=== PATIENT | female | born 1940 | race Caucasian/White ===

== ENCOUNTER 2021-11-07 17:21 | Emergency (ER) | payer MEDICARE ==
--- NOTE | 2021-11-07 18:46 | RAD REPORT ---
EXAM DESCRIPTION: CT - Head Brain Wo Cont - 11/07/2021 6:38 pm CLINICAL HISTORY: FALL HEAD INJURY COMPARISON: <Comparisons> TECHNIQUE: All CT scans are performed using dose optimization technique as appropriate and may inclu de automated exposure control or mA/KV adjustment according to patient size. FINDINGS: No intracranial hemorrhage, hydrocephalus or extra-axial fluid collection.No areas of brai n edema or evidence of midline shift. Cerebral atrophy which is age advanced. The paranasal sinuses and mastoids are clear. Scalp swelling at the occiput. IMPRESSION: No acute intracranial abnormality. No skull fracture.
--- NOTE | 2021-11-07 18:54 | RAD REPORT ---
EXAM DESCRIPTION: CT - C Spine Wo Con - 11/07/2021 6:38 pm CLINICAL HISTORY: FALL HEAD INJURY COMPARISON: No comparisons TECHNIQUE: CT Scan was obtained of the cervical spine without contrast. Reformats were provided in t he sagittal and coronal plane. FINDINGS: No acute fracture of the cervical spine. No traumatic malalignment. No prevertebral edema. Multilevel cervical spondylosis. Reversal of the normal cervical lordosis. No suspicious thyroid nod ules or lymphadenopathy. The lung apices are clear. Trace anterolisthesis of C3 on C4. Carotid artery calcifications. Varying degrees of neural foraminal narrowing noted. This is most advanced at C3-4 b ilaterally. IMPRESSION: No fracture or traumatic malalignment of the cervical spine.
--- NOTE | 2021-11-07 19:03 | RAD REPORT ---
EXAM DESCRIPTION: CT - Spine Lumbar Wo Con - 11/07/2021 6:38 pm CLINICAL HISTORY: Radiculopathy. FALL HEAD INJURY COMPARISON: No comparisons TECHNIQUE: Axial noncontrast CT imaging of the lumbar spine was performed with coronal and sagittal re-formatted images. All CT scans are performed using dose optimization technique as appropriate and may include automated exposure control or mA/KV adjustment according to patient size. FINDINGS: L1 compression fracture with approximately 30% loss of height anteriorly. Uncertain if thi s is acute or chronic. No bony retropulsion. Status post L3 through L5 fusion. Interbody spacers at L 3-L4 and L4-L5. Intervertebral disc disease assessment is inherently limited by CT. Within these limitations, no high -grade canal stenosis suspected. IMPRESSION: Age indeterminate L1 compression fracture with approximately 30% loss height. No bony re tropulsion. Correlate with patient's site of pain. Consider MRI follow-up for assessment of disc disease if clinically desired.
--- NOTE | 2021-11-07 19:16 | ER ---
Nurse's Notes [facility] Name: Michell Mejia Age: 81 yrs Sex: Female : 1940 Arrival Date: 11/07/2021 Time: 17:36 Bed 6 Private MD: Diagnosis: Unspecified injury of head, initial encounter Presentation: 11/07 17:47 Chief complaint: EMS states: Witnessed fall at assisted living facility, pt's daughter ph in law was present and said that "she got tripped up on her feet." Hematoma to back of head, no LOC, does not take blood thinners, hx of TBI and dementia-like symptoms, oriented to person and place at baseline, denies dizziness or nausea. Coronavirus screen: Vaccine status: Patient reports receiving the 2nd dose of the covid vaccine. Ebola Screen: No symptoms or risks identified at this time. Initial Sepsis Screen: Does the patient meet any 2 criteria? No. Patient's initial sepsis screen is negative. Does the patient have a suspected source of infection? No. Patient's initial sepsis screen is negative. Risk Assessment: Do you want to hurt yourself or someone else? Patient reports no desire to harm self or others. Onset of symptoms was November 07, 2021. 17:47 Method Of Arrival: EMS: [facility] 17:47 Acuity: RAFAEL 3 ph Triage Assessment: 18:00 General: Appears in no apparent distress. Behavior is calm, cooperative, appropriate ph for age. Pain: Denies pain. Neuro: Level of Consciousness is awake, alert, obeys commands, Oriented to person, place, hematoma to L occipital area. Cardiovascular: Capillary refill < 3 seconds in bilateral fingers Patient's skin is warm and dry. Respiratory: Airway is patent Respiratory effort is even, unlabored. Derm: Skin is intact, is healthy with good turgor, Skin is pink, warm \\T\\ dry. Musculoskeletal: Circulation, motion, and sensation intact. Historical: - Allergies: 17:54 No Known Allergies; ph - Home Meds: 17:54 None [Active]; ph - PMHx: 17:54 TBI; Dementia; ph - Immunization history:: Adult Immunizations unknown. - Social history:: Smoking status: Patient denies any tobacco usage or history of. Screenin:47 Abuse screen: Denies threats or abuse. Denies injuries from another. Nutritional ph screening: No deficits noted. Tuberculosis screening: No symptoms or risk factors identified. Fall Risk None identified. Assessment: 18:15 General: SEE TRIAGE ASSESSMENT. ph 18:48 Reassessment: Pt in CT. ph Vital Signs: 17:47 BP 181 / 83; Pulse 88; Resp 18; Temp 98.2; Pulse Ox 100% on R/A; Weight 74.84 kg; ph Height 5 ft. 8 in. (172.72 cm); 19:22 BP 188 / 91; Pulse 76; Resp 18; Pulse Ox 100% on R/A; as6 17:47 Body Mass Index 25.09 (74.84 kg, 172.72 cm) ph ED Course: 17:36 Patient arrived in ED. ds1 17:44 Ethan Alex PA is PHCP. [facility] 17:44 Raheel Shah MD is Attending Physician. [facility] 17:47 Gayla Terry, RN is Primary Nurse. ph 17:54 Triage completed. ph 18:39 Head Brain Wo Cont In Process Unspecified. EDMS 18:39 C Spine Wo Con In Process Unspecified. EDMS 18:45 Arm band placed on. ph 18:46 Patient has correct armband on for positive identification. Bed in low position. Call ph light in reach. Side rails up X 1. Pulse ox on. NIBP on. Door closed. Noise minimized. 19:32 No provider procedures requiring assistance completed. Patient did not have IV access as6 during this emergency room visit. Administered Medications: No medications were administered Outcome: 19:15 Discharge ordered by . [facility] 19:33 Discharged to home via wheelchair, with family. as6 19:33 Condition: stable 19:33 Discharge instructions given to patient, family, Instructed on discharge instructions, follow up and referral plans. Demonstrated understanding of instructions, follow-up care. 19:33 Patient left the ED. as6 Signatures: Dispatcher [employer] EDMS Ethan Alex PA PA jmm Sanford, Demi ds1 Gayla Terry, RN RN Rufus Moraes RN RN as6
--- NOTE | 2021-11-07 19:17 | EDPHYS ---
Physician Documentation [facility] Name: Michell Mejia Age: 81 yrs Sex: Female : 1940 Arrival Date: 11/07/2021 Time: 17:36 Bed 6 Private MD: ED Physician Raheel Shah HPI: 11/07 17:46 This 81 yrs old Female presents to ER via EMS with complaints of Fall Injury. jmm 17:46 Details of fall: The patient fell from an upright position, while walking. Onset: The jmm symptoms/episode began/occurred acutely, just prior to arrival. Associated injuries: The patient sustained injury to the head, injury to the low back. This is a 81-year-old female with history of dementia the presents emerged department with complaints of pain to the coccygeal region along with a head injury. Daughter states she witnessed the patient fall landing backwards hitting her head. Denies LOC, vomiting, behavior change.. Historical: - Allergies: 17:54 No Known Allergies; ph - Home Meds: 17:54 None [Active]; ph - PMHx: 17:54 TBI; Dementia; ph - Immunization history:: Adult Immunizations unknown. - Social history:: Smoking status: Patient denies any tobacco usage or history of. ROS: 17:46 Constitutional: Negative for fever, chills, and weight loss, Cardiovascular: Negative jmm for chest pain, palpitations, and edema, Respiratory: Negative for shortness of breath, cough, wheezing, and pleuritic chest pain. 17:46 Back: Positive for pain with movement. 17:46 Neuro: Positive for headache. 17:46 All other systems are negative. Exam: 17:46 Constitutional: This is a well developed, well nourished patient who is awake, alert, jmm and in no acute distress. Head/Face: atraumatic. Eyes: EOMI, no conjunctival erythema appreciated ENT: Moist Mucus Membranes Neck: Trachea midline, Supple Chest/axilla: Normal chest wall appearance and motion. Cardiovascular: Regular rate and rhythm. No edema appreciated Respiratory: Normal respirations, no respiratory distress appreciated Abdomen/GI: Non distended, soft 17:46 Back: vertebral tenderness, is appreciated at sacrum. 17:46 Musculoskeletal/extremity: ROM: intact in all extremities. 17:46 Skin: Appearance: Color: normal in color. 17:46 Neuro: Orientation: is normal, Mentation: is normal, Memory: is normal. 17:46 Psych: Behavior/mood is pleasant, cooperative. Vital Signs: 17:47 BP 181 / 83; Pulse 88; Resp 18; Temp 98.2; Pulse Ox 100% on R/A; Weight 74.84 kg; ph Height 5 ft. 8 in. (172.72 cm); 19:22 BP 188 / 91; Pulse 76; Resp 18; Pulse Ox 100% on R/A; as6 17:47 Body Mass Index 25.09 (74.84 kg, 172.72 cm) ph MDM: 17:46 Patient medically screened. bridget 19:14 Data reviewed: vital signs, nurses notes. Counseling: I had a detailed discussion with bridget the patient and/or guardian regarding: the historical points, exam findings, and any diagnostic results supporting the discharge/admit diagnosis, radiology results, the need for outpatient follow up, to return to the emergency department if symptoms worsen or persist or if there are any questions or concerns that arise at home. ED course: Imaging studies are negative for traumatic head and C-spine findings. Indeterminate L1 fracture noted. Patient states that she did have previous lumbar surgery performed and currently denies any lumbar pain. I do not currently suspect an acute fracture. I did discuss using a T LSO brace. Patient has no fecal or urinary issues. No numbness to the legs appreciated. I do not currently suspect cord compression or cauda equina. 11/07 18:06 Order name: Head Brain Wo Cont; Complete Time: 18:50 EDMS 11/07 18:06 Order name: C Spine Wo Con; Complete Time: 18:55 EDMS 11/07 18:35 Order name: Spine Lumbar Wo Con; Complete Time: 19:09 EDMS Administered Medications: No medications were administered Disposition Summary: 11/07/21 19:15 Discharge Ordered Location: Home bridget Condition: Stable bridget Diagnosis - Unspecified injury of head, initial encounter bridget Followup: bridget - With: Private Physician - When: 1 - 2 days - Reason: Recheck today's complaints, Continuance of care, Re-evaluation by your physician Discharge Instructions: - Discharge Summary Sheet bridget - Head Injury, Adult bridget Forms: - Medication Reconciliation Form bridget - Thank You Letter jmm - Antibiotic Education jmm - Prescription Opioid Use jm Addendum: 11/11/2021 18:37 Co-signature as Attending Physician, Raheel Shah MD I agree with the assessment and c [facility] plan of care. Signatures: Dispatcher [employer] Raheel Colón MD MD cha Mickail, Joel, PA PA Gayla Choudhury, RN RN ph Corrections: (The following items were deleted from the chart) 11/07 17:57 17:51 Head C Spine MPR Wo Con+CT.RAD.BRZ ordered. EDMS EDMS 18:07 17:50 Head C Spine Cap Wo Con ordered. EDMS EDMS 18:34 18:06 Thorax Wo Con ordered. EDMS EDMS 18:35 18:06 Abdomen ordered. EDMS EDMS
[2021-11-07 20:14] VITALS: TEMP 98.2; O2SAT 100
[2021-11-07 20:16] VITALS: BP 188/91
== END 2021-11-07 19:33 | disposition home or self-care (01) ==
LOC: ER 17:21
DX: S09.90XA Unspecified injury of head, initial encounter (principal); W19.XXXA Unspecified fall, initial encounter; Y93.01 Activity, walking, marching and hiking; F03.90 Unspecified dementia, unspecified severity, without behavioral disturbance, psychotic disturbance, mood disturbance, and anxiety; M54.50 Low back pain, unspecified; R51.9 Headache, unspecified; Z87.820 Personal history of traumatic brain injury
CPT/HCPCS: 70450; 72125; 72131; 99283

== ENCOUNTER 2021-11-28 11:36 | Emergency (ER) | payer MEDICARE ==
--- NOTE | 2021-11-28 13:32 | RAD REPORT ---
EXAM DESCRIPTION: CT - CTHCSPWOC - 11/28/2021 1:22 pm CLINICAL HISTORY: Trauma, head and neck injury. Fall, Head Injury COMPARISON: C Spine Wo Con dated 11/07/2021 TECHNIQUE: Axial 5 mm thick images of the head were obtained. Axial 2 mm thick images of the cervical spine were obtained with sagittal and coronal reconstruction images generated and reviewed. All CT scans are performed using dose optimization technique as appropriate and may include automated exposure control or mA/KV adjustment according to patient size. FINDINGS: CT HEAD WITHOUT CONTRAST: No acute hemorrhage, hydrocephalus or extra-axial collection is identified.Moderate generalized brain atrophy is present with mild periventricular and deep white matter chronic microvascular ischemic ch anges.No areas of brain edema or midline shift. The paranasal sinuses and mastoids are clear.The calvarium is intact. 15 mm right-sided scalp hematom a. CT CERVICAL SPINE WITHOUT CONTRAST: No fracture or acute subluxation.Moderate lower cervical degenerative changes with 3 mm degenerative anterolisthesis of L3 on 4.No prevertebral soft tissues swelling is identified. IMPRESSION: No acute intracranial or cervical spine findings.
--- NOTE | 2021-11-28 14:41 | RAD REPORT ---
EXAM DESCRIPTION: RAD - Ankle Right 3 View - 11/28/2021 2:33 pm CLINICAL HISTORY: fall Fall, trauma, pain COMPARISON: No comparisons FINDINGS: Mild soft tissue swelling is seen. No acute fracture or dislocation.
--- NOTE | 2021-11-28 15:26 | ER ---
Nurse's Notes [facility] Name: Michell Mejia Age: 81 yrs Sex: Female : 1940 Arrival Date: 11/28/2021 Time: 11:44 Bed 19 Private MD: Diagnosis: Sprain of ankle;Unspecified injury of head, initial encounter Presentation: 11/28 11:46 Chief complaint: EMS states: pt presented to ED with EMS reporting pt walking with [facility] staff at the [facility] using a cane. pt tripped and fell hitting right side of head with notable hematoma. pt is not on blood thinners and no loc. Coronavirus screen: Vaccine status: Patient reports being unvaccinated. Ebola Screen: Patient denies travel to an Ebola-affected area in the 21 days before illness onset. Initial Sepsis Screen: Does the patient meet any 2 criteria? No. Patient's initial sepsis screen is negative. Does the patient have a suspected source of infection? No. Patient's initial sepsis screen is negative. Risk Assessment: Do you want to hurt yourself or someone else? Patient reports no desire to harm self or others. Onset of symptoms was November 28, 2021. 11:46 Method Of Arrival: EMS: [facility] 11:46 Acuity: RAFAEL 3 gal[facility]iz Triage Assessment: 11:46 General: Appears in no apparent distress. Behavior is calm, cooperative. Pain: galaviz Complains of pain in right side of head. Injury Description: hematoma to right side of head. Historical: - Allergies: 11:45 No Known Allergies; gal[facility]iz - Home Meds: 11:45 Unable to obtain [Active]; gal[facility]iz - PMHx: 11:45 Unable to Obtain; [facility] - PSHx: 11:45 Unable to Obtain; gal[facility] - Immunization history:: Adult Immunizations up to date. - Social history:: Smoking status: Patient denies any tobacco usage or history of. Screenin:45 Abuse screen: Denies threats or abuse. Denies injuries from another. Nutritional [facility] screening: No deficits noted. Tuberculosis screening: No symptoms or risk factors identified. Fall Risk Ambulatory Aid- Crutches/Cane/Walker (15 pts). Mental Status-. Assessment: 11:50 General: Appears in no apparent distress. Behavior is calm, cooperative. gal[facility]iz Vital Signs: 11:46 BP 151 / 88; Pulse 74; Resp 17; Temp 98.0(T); Pulse Ox 100% ; Weight 63.5 kg; Height 5 galaviz ft. 5 in. (165.10 cm); 11:46 Body Mass Index 23.30 (63.50 kg, 165.10 cm) ED Course: 11:44 Patient arrived in ED. [facility]iz 11:45 Patient has correct armband on for positive identification. Bed in low position. [facility] 11:45 No provider procedures requiring assistance completed. [facility] 11:46 Arm band placed on. [facility] 11:49 Triage completed. [facility] 12:02 Naida Feliz, ANTHONY is Primary Nurse. [facility] 12:07 Ethan Alex PA is PHCP. [facility] 12:07 Jassi Trent MD is Attending Physician. [facility] 13:24 CT Head C Spine In Process Unspecified. EDMS 14:35 Ankle Right 3 View XRAY In Process Unspecified. EDMS 15:41 Patient did not have IV access during this emergency room visit. [facility] Administered Medications: No medications were administered Outcome: 15:25 Discharge ordered by . [facility] 15:41 Discharged to [facility]. Report called to [facility] 15:41 Condition: good 15:41 Discharge instructions given to patient, family. 15:41 Patient left the ED. [facility] Signatures: Dispatcher [employer] EDMS Ethan Alex PA PA jmm Au-Stager, Heather, RN RN Corrections: (The following items were deleted from the chart) 11:45 11:45 PMHx: Dementia; [facility] 11:45 11:45 PMHx: TBI; [facility] 11:45 11:45 PSHx: Unable to Obtain; gal[facility]iz gal[facility]iz 11:45 11:45 PSHx: Vasectomy; [facility] 11:45 11:45 PSHx: None; [facility] 12:02 11:46 Chief complaint: EMS states: pt presented to ED with EMS reporting pt walking [facility] with staff at the [facility] using a cane. pt tripped and fell hitting right side of head with notable hematoma and about 2+cm laceration. pt is not on blood thinners and no loc. [facility] 12:03 11:46 Injury Description: Laceration sustained to right side of head hematoma to right gal[facility]iz side of head [facility]
--- NOTE | 2021-11-28 15:26 | EDPHYS ---
Physician Documentation [facility] Name: Michell Mejia Age: 81 yrs Sex: Female : 1940 Arrival Date: 11/28/2021 Time: 11:44 Bed 19 Private MD: ED Physician Jassi Trent HPI: 11/28 12:19 This 81 yrs old Female presents to ER via EMS with complaints of Fall Injury. jmm 12:19 Details of fall: The patient fell from an upright position. Onset: The symptoms/episode jmm began/occurred acutely, just prior to arrival. Associated injuries: The patient sustained injury to the head. Patient fell from a standing position. partner states the patient tripped over her ankle. Unsure of LOC. No vomiting. No behavior change. . Historical: - Allergies: 11:45 No Known Allergies; gal[facility] - Home Meds: 11:45 Unable to obtain [Active]; [facility] - PMHx: 11:45 Unable to Obtain; [facility] - PSHx: 11:45 Unable to Obtain; [facility] - Immunization history:: Adult Immunizations up to date. - Social history:: Smoking status: Patient denies any tobacco usage or history of. ROS: 12:19 Unable to obtain ROS due to baseline dementia. jm Exam: 12:19 Constitutional: This is a well developed, well nourished patient who is awake, alert, jmm and in no acute distress. 12:19 Eyes: EOMI, no conjunctival erythema appreciated ENT: Moist Mucus Membranes 12:19 Chest/axilla: Normal chest wall appearance and motion. Cardiovascular: Regular rate and rhythm. No edema appreciated Respiratory: Normal respirations, no respiratory distress appreciated Abdomen/GI: Non distended, soft Back: Normal ROM Skin: General appearance color normal MS/ Extremity: Moves all extremities, no obvious deformities appreciated, no edema noted to the lower extremities 12:19 Head/face: Noted is hematoma, that is moderate, of the left occipital area and right occipital area, swelling. 12:19 Neck: C-spine: appears grossly normal. 12:19 Neuro: Motor: is normal. Vital Signs: 11:46 BP 151 / 88; Pulse 74; Resp 17; Temp 98.0(T); Pulse Ox 100% ; Weight 63.5 kg; Height 5 galaviz ft. 5 in. (165.10 cm); 11:46 Body Mass Index 23.30 (63.50 kg, 165.10 cm) gal[facility]iz MDM: 12:19 Patient medically screened. [facility] 15:24 Data reviewed: vital signs, nurses notes. Counseling: I had a detailed discussion with [facility] the patient and/or guardian regarding: the historical points, exam findings, and any diagnostic results supporting the discharge/admit diagnosis, lab results, radiology results, to return to the emergency department if symptoms worsen or persist or if there are any questions or concerns that arise at home. 11/28 12:20 Order name: CT Head C Spine; Complete Time: 13:38 [facility] 11/28 12:57 Order name: Ankle Right 3 View XRAY; Complete Time: 14:41 [facility] 11/28 14:41 Order name: Trevor wrap-joint; Complete Time: 14:57 [facility] Administered Medications: No medications were administered Disposition: 16:06 Co-signature as Attending Physician, Jassi Trent MD I agree with the assessment and kdr plan of care. Disposition Summary: 11/28/21 15:25 Discharge Ordered Location: Home [facility] Condition: Stable [facility] Diagnosis - Sprain of ankle jmm - Unspecified injury of head, initial encounter [facility] Followup: [facility] - With: Private Physician - When: 2 - 3 days - Reason: Recheck today's complaints, Continuance of care, Re-evaluation by your physician Discharge Instructions: - Discharge Summary Sheet [facility] - Ankle Sprain jmm - Head Injury, Adult [facility] Forms: - Medication Reconciliation Form [facility] - Thank You Letter [facility] - Antibiotic Education [facility] - Prescription Opioid Use [facility] Signatures: Dispatcher [employer] EDMS Jassi Trent MD MD kdr Mickail, Joel, PA PA [facility] Naida Feliz RN RN [facility] Corrections: (The following items were deleted from the chart) 11:45 11:45 PMHx: Dementia; [facility] 11:45 11:45 PMHx: TBI; [facility] 11:45 11:45 PSHx: Unable to Obtain; [facility]iz gal[facility]iz 11:45 11:45 PSHx: Vasectomy; [facility] gal[facility] 11:45 11:45 PSHx: None; [facility] gal[facility] 13:09 12:21 Ankle Left 3 View+RAD.RAD.BRZ ordered. EDMS EDMS
[2021-11-28 15:46] VITALS: BP 151/88; TEMP 98; O2SAT 100
== END 2021-11-28 15:41 | disposition home or self-care (01) ==
LOC: ER 11:36
DX: S93.401A Sprain of unspecified ligament of right ankle, initial encounter (principal); S00.83XA Contusion of other part of head, initial encounter; W01.0XXA Fall on same level from slipping, tripping and stumbling without subsequent striking against object, initial encounter; Y92.129 Unspecified place in nursing home as the place of occurrence of the external cause
CPT/HCPCS: 70450; 72125; 99283

== ENCOUNTER 2022-10-04 08:26 | Inpatient (IN) | payer MEDICARE, OTHER ==
--- NOTE | 2022-10-04 09:10 | RAD REPORT ---
EXAM DESCRIPTION: Jadiel Single View10/04/2022 9:03 am CLINICAL HISTORY: Alteration of consciousness COMPARISON: none FINDINGS: The lungs appear clear of acute infiltrate. The heart is normal size IMPRESSION: No acute abnormalities displayed
[2022-10-04 09:18] LABS: Absolute Lymphocytes (CBC) 0.7 K/uL (0.7-4.9); Hematocrit 41.6 % (36.0-45.0); Lymphocytes % 8.4 % (15.3-44.8); MCV 88.2 fL (80-100); RBC Red Blood Cell Count 4.71 M/uL (3.86-4.86)
[2022-10-04 09:36] LABS: Albumin 3.4 g/dL (3.4-5.0); Bilirubin Total 0.6 mg/dL (0.2-1.0); Potassium 4.1 mmol/L (3.5-5.1); Protein, Total 6.3 g/dL (6.4-8.2)
[2022-10-04 10:52] LABS: Urine Blood 2+ (Negative); Urine Glucose Negative (Negative); Urine Protein 3+ (Negative); Urine pH 7.5 (5.0-7.0)
[2022-10-04 11:29] LABS: Urine Bacteria 20-50 /HPF (<20); Urine RBC 21-50 /HPF (None Seen)
--- NOTE | 2022-10-04 11:54 | RAD REPORT ---
EXAM DESCRIPTION: CT - Head Brain Wo Cont - 10/04/2022 11:38 am CLINICAL HISTORY: Alteration of awareness/confusion COMPARISON: 2021 TECHNIQUE: Computed axial tomography of the head was obtained. IV contrast was not requested. All CT scans are performed using dose optimization technique as appropriate and may include automated exposure control or mA/KV adjustment according to patient size. FINDINGS: An intracranial bleed is not seen The ventricles are normal in caliber No extra-axial fluid collection is noted. No significant hypodensity within the brain is seen. Fluid within the sinuses/ mastoids is not seen. IMPRESSION: No acute intracranial abnormality is seen If patient's symptoms persist MRI of the brain would be recommended
[2022-10-04] MEDS ORDERED: CEFTRIAXONE 1000 MG/VIAL ONE (12:12)
[2022-10-04] MEDS ORDERED: ACETAMINOPHEN 325 MG TABLET PO PRN (14:45)
[2022-10-04] MEDS ORDERED: ONDANSETRON 4 MG/2 ML VIAL IV PRN (14:48)
--- NOTE | 2022-10-04 14:52 | P.HP ---
Certification for Inpatient Patient admitted to: Inpatient With expected LOS: >2 Midnights Patient will require the following post-hospital care: None Practitioner: I am a practitioner with admitting privileges, knowledge of patient current condition, hospital course, and medical plan of care. Services: Services provided to patient in accordance with Admission requirements found in Title 42 Section 412.3 of the Code of Federal Regulations Patient History Date of Service: 10/04/22 Reason for admission: Altered mental status and generalized weakness. History of Present Illness: Patient is a 82-year-old female with a past medical history significant for anxiety disorder, fibromyalgia, osteoarthritis, dementia who presents with complaint of generalized weakness and altered mental status. Patient is a resident of an assisted living facility. Family reported that patient has intermittent confusion at baseline and has speech impediment. Patient currently alert and oriented x0, confused and unable to provide any history. Per family reports patient has been having poor p.o. intake and patient noted to be weak for the past couple of days. Family reported that patient has been having difficulty walking. Patient also noted with bilateral lower extremity edema. Family also reported that patient has been having tremors in the right for the past couple of months. No other signs or symptoms reported. Symptoms are aggravated or relieved by nothing. Family decided to bring patient to the hospital for medical evaluation Allergies No Known Allergies Allergy (Verified 10/04/22 15:09) - Past Medical/Surgical History -: Dementia -: Fibromyalgia -: Anxiety disorder -: Osteoarthritis Past Surgical History: Reviewed- Non-Contributory - Family History Family History: Reviewed- Non-Contributory - Social History Smoking Status: Unknown if ever smoked Alcohol use: No CD- Drugs: No Caffeine use: No Place of Residence: [facility] Review of Systems is unable to be obtained (Patient confused and unable to provide any history.) Physical Examination - Physical Exam General: Alert, In no apparent distress, Demented, Confused HEENT: Atraumatic, PERRLA, Mucous membr. moist/pink, EOMI, Sclerae nonicteric Neck: Supple, 2+ carotid pulse no bruit, No LAD, Without JVD or thyroid abnormality Respiratory: Diminished Cardiovascular: Regular rate/rhythm, Normal S1 S2, Edema Capillary refill: <2 Seconds Gastrointestinal: Normal bowel sounds, Soft and benign, No tenderness Musculoskeletal: No erythema, No tenderness Integumentary: No rashes, No significant lesion Neurological: Normal tone, Normal affect, Abnormal speech Lymphatics: No axilla or inguinal lymphadenopathy - Studies Laboratory Data (last 24 hrs) 10/04/22 09:00: PT 11.0, INR 1.00, APTT 32.9 10/04/22 09:00: Sodium 142, Potassium 4.1, BUN 25 H, Creatinine 0.68, Glucose 122 H, Total Bilirubin 0.6, AST 46 H, ALT 30, Alkaline Phosphatase 73 10/04/22 09:00: WBC 8.30, Hgb 13.4, Hct 41.6, Plt Count 154 Assessment and Plan - Plan --Acute encephalopathy. Patient has intermittent confusion at [facility]. Confusion worsened by UTI. MRI brain unremarkable for any acute intracranial abnormality. Continue supportive care. --UTI POA. Continue antibiotics. Urine cultures pending. --Bilateral lower extremity edema. Patient given one-time dose of Lasix. Echocardiogram pending to assess cardiac structure and function. Continue supportive care. --Generalized weakness. MRI brain negative for any acute findings. PT eval and treat. -- Fibromyalgia\osteoarthritis. We will manage pain with current pain medication regimen. -- Dementia. With superimposed delirium secondary to UTI. Continue antibiotics and supportive care. --CKD 2. Stable. We will continue to monitor renal functions. --Anxiety disorder. Continue supportive care. --DVT prophylaxis with Lovenox subQ. Discharge Plan: Other (Assisted living facility.) Plan to discharge in: Greater than 2 days - Advance Directives Does patient have a Living Will: No Does patient have a Durable POA for Healthcare: No - Code Status/Comfort Care Code Status Assessed: Yes Code Status: Do Not Attempt Resuscitat Physician Review: Patient Assessed, Agree with Above Assessment and Plan Critical Care: No
[2022-10-04] MEDS ORDERED: FUROSEMIDE 40 MG/4 ML VIAL IV ONE (14:54)
[2022-10-04] MEDS: ENOXAPARIN 40 MG/0.4 ML SQ SCH (15:00)
[2022-10-04] MEDS ORDERED: FUROSEMIDE 40 MG/4 ML VIAL ONE (16:00)
[2022-10-04] MEDS ORDERED: ENOXAPARIN 40 MG/0.4 ML SQ ONE (16:00)
[2022-10-04 16:01] LABS: SARS-CoV-2 Antigen Rapid Res Negative (Negative)
--- NOTE | 2022-10-04 16:27 | RAD REPORT ---
EXAM DESCRIPTION: MRI - Brain Wo Cont - 10/04/2022 4:02 pm CLINICAL HISTORY: Generalized weakness, difficuty walking Headache, drowsiness COMPARISON: Head Brain Wo Cont dated 10/04/2022 TECHNIQUE: Multi-sequence, multiplanar MR imaging of the brain was performed without contrast. FINDINGS: No intracranial hemorrhage, hydrocephalus or extra-axial fluid collections.Advanced brain atrophy. No edema or shift of midline structures. No findings to suspect brain mass. DWI is negative for acute CVA. Midline structures are normally formed. Mastoid air cells and paranasal sinuses are clear. IMPRESSION: Advanced brain atrophy.
[2022-10-04 17:31] LABS: Magnesium 2.1 mg/dL (1.6-2.4); Phosphorus 2.8 mg/dL (2.5-4.9); Thyroid Stimulating Hormone 1.58 uIU/mL (0.358-3.740)
[2022-10-04 22:14] VITALS: BMI 20.3
[2022-10-05 02:53] LABS: Absolute Lymphocytes (CBC) 0.8 K/uL (0.7-4.9); Hematocrit 38.6 % (36.0-45.0); Lymphocytes % 8.6 % (15.3-44.8); MCV 86.8 fL (80-100); MPV 8.3 fL (7.6-11.3); RBC Red Blood Cell Count 4.45 M/uL (3.86-4.86)
[2022-10-05 02:59] LABS: Potassium 3.6 mmol/L (3.5-5.1)
[2022-10-05] MEDS ORDERED: KCL 20 MEQ/100 mL IVPB 20 MEQ/100 ML BAG IV SCH (05:00)
[2022-10-05] MEDS ORDERED: KCL 20 MEQ/100 mL IVPB 100 ML IV ONE (05:01)
[2022-10-05] MEDS ORDERED: NA CHLORIDE 0.9% 250 ML ONE (05:01)
[2022-10-05] MEDS ORDERED: PNEUMOCOCCAL VACCINE 0.5 ML IMVAC ONE (08:00)
[2022-10-05] MEDS ORDERED: ASPIRIN 81 MG CHEWABLE TABLET ONE (09:26)
[2022-10-05] MEDS ORDERED: CEFTRIAXONE 1000 MG/VIAL ONE (09:26)
[2022-10-05] MEDS ORDERED: ENOXAPARIN 40 MG/0.4 ML SQ ONE (09:27)
[2022-10-05] MEDS ORDERED: NA CHLORIDE 0.9% 50 ML ONE (09:27)
[2022-10-05] MEDS: ENOXAPARIN 40 MG/0.4 ML SQ SCH (09:33)
[2022-10-05] MEDS: ASPIRIN 81 MG CHEWABLE TABLET PO SCH (09:33)
[2022-10-05] MEDS: CEFTRIAXONE 1,000 MG in NA CHLORIDE 0.9% 50 ML IVPB SCH (09:34)
--- NOTE | 2022-10-05 13:06 | EKG ---
Test Date: 2022-10-04 Test Time: 09:18:46 Psychology Associate: EDUARDO MEASUREMENT RESULTS: Intervals: Rate: 76 MD: 172 QRSD: 70 QT: 364 QTc: 409 Kimmell: P: 66 MD: 172 QRS: 73 T: 79 INTERPRETIVE STATEMENTS: Sinus rhythm with premature atrial complexes with aberrant conduction Otherwise normal ECG Compared to ECG 05/12/2022 11:41:24 Atrial premature complex(es) now present Aberrant conduction of supraventricular beat(s) now present ST (T wave) deviation no longer present Electronically Signed On 10-05-22 13:03:26 FAMILY DEVELOPMENT EXTENSION SPECIALIST by Singh Heaton
[2022-10-05] MEDS: RISPERIDONE 0.25 MG TABLET PO PRN (16:43)
[2022-10-06 04:09] LABS: Potassium 3.8 mmol/L (3.5-5.1)
[2022-10-06] MEDS: ENOXAPARIN 40 MG/0.4 ML SQ SCH (08:05)
[2022-10-06] MEDS: RISPERIDONE 0.25 MG TABLET PO PRN ×2 (08:05→19:26)
[2022-10-06] MEDS: ASPIRIN 81 MG CHEWABLE TABLET PO SCH (08:05)
[2022-10-06] MEDS: CEFTRIAXONE 1,000 MG in NA CHLORIDE 0.9% 50 ML IVPB SCH (08:05)
[2022-10-06] MEDS ORDERED: POTASSIUM CL SA 10 MEQ TAB PO ONE (09:00)
[2022-10-07 05:13] LABS: Potassium 4.1 mmol/L (3.5-5.1)
--- NOTE | 2022-10-07 07:34 | ECHO ---
HEIGHT: 5 ft 7 in WEIGHT: 130 lb 0 oz DATE OF STUDY: 10/06/[address]: Wilmer Escobar 2-DIMENSIONAL: YES M.MODE: YES DOPPLER: YES COLOR FLOW: YES TDS: PORTABLE: YES DEFINITY: BUBBLE STUDY: DIAGNOSIS: CONGESTIVE HEART FAILURE CARDIAC HISTORY: CATHERIZATION: SURGERY: PROSTHETIC VALVE: PACEMAKER: MEASUREMENTS (cm) DIASTOLIC (NORMALS) SYSTOLIC (NORMALS) IVSd 0.9 (0.6-1.2) LA Diam 3.9 (1.9-4.0) LVEF 75% LVIDd 2.8 (3.5-5.7) LVIDs 1.6 (2.0-3.5) %FS 42% LVPWd 0.9 (0.6-1.2) Ao Diam 2.6 (2.0-3.7) 2 DIMENSIONAL ASSESSMENT: RIGHT ATRIUM: NORMAL LEFT ATRIUM: NORMAL RIGHT VENTRICLE: NORMAL LEFT VENTRICLE: NORMAL TRICUSPID VALVE: MILD TRICUSPID REGURGITATION MITRAL VALVE: NORMAL PULMONIC VALVE: NORMAL AORTIC VALVE: NORMAL PERICARDIAL EFFUSION: NONE AORTIC ROOT: NORMAL LEFT VENTRICULAR WALL MOTION: NORMAL DOPPLER/COLOR FLOW: MILD TRICUSPID REGURGITATION COMMENTS: 1. NORMAL LEFT VENTRICULAR EJECTION FRACTION GREATER THAN 60% 2. NORMAL WALL MOTION 3. MILD TRICUSPID REGURGITATION 4. RIGHT VENTRICULAR SYSTOLIC PRESSURE IS 30-35 mmHg 5. NORMAL DIASTOLIC FUNCTION TECHNOLOGIST: NIRAJ BROWN
[2022-10-07] MEDS: CEFTRIAXONE 1,000 MG in NA CHLORIDE 0.9% 50 ML IVPB SCH (09:25)
[2022-10-07] MEDS: ENOXAPARIN 40 MG/0.4 ML SQ SCH (09:26)
[2022-10-07] MEDS: RISPERIDONE 0.25 MG TABLET PO PRN (09:26)
[2022-10-07] MEDS: ASPIRIN 81 MG CHEWABLE TABLET PO SCH (09:26)
[2022-10-07 11:32] VITALS: O2SAT 96
[2022-10-07 12:59] VITALS: BP 167/73; TEMP 97.9
[2022-10-07] MEDS ORDERED: CEFDINIR 300 MG CAP PO SCH (21:00)
--- NOTE | 2022-10-21 14:16 | ER ---
Nurse's Notes [facility] Name: Michell Mejia Age: 82 yrs Sex: Female : 1940 Arrival Date: 10/04/2022 Time: 08:31 Bed 25 Private MD: Diagnosis: UTI/ Urinary tract infection, site not specified;Muscle weakness (generalized);Altered mental status, unspecified Presentation: 10/04 08:35 Chief complaint: EMS states: patient was last seen normal was yesterday. Patient had jb4 altered mental status this morning, not talking. Smells strong of urine. Coronavirus screen: Vaccine status: Patient reports receiving the 2nd dose of the covid vaccine. Ebola Screen: No symptoms or risks identified at this time. Initial Sepsis Screen: Does the patient meet any 2 criteria? Altered Mental Status. Does the patient have a suspected source of infection? No. Patient's initial sepsis screen is negative. Risk Assessment: Do you want to hurt yourself or someone else? Patient reports no desire to harm self or others. Onset of symptoms is unknown. 08:35 Method Of Arrival: EMS: [facility] jb4 08:35 Acuity: RAFAEL 3 jb4 Triage Assessment: 08:38 General: Appears distressed, ill, Behavior is appropriate for age, flat, Smells of jb4 urine. Pain: Denies pain. Historical: - Allergies: 08:38 No Known Allergies; jb4 - PMHx: 08:38 Anxiety; Fibromyalgia; osteoarthritis; jb4 - Immunization history:: Adult Immunizations up to date. - Social history:: Smoking status: Patient denies any tobacco usage or history of. Screenin:40 [facility] ED Fall Risk Assessment (Adult) History of falling in the last 3 months, ko1 including since admission No falls in past 3 months (0 pts) Confusion or Disorientation No (0 pts) Intoxicated or Sedated No (0 pts) Impaired Gait No (0 pts) Mobility Assist Device Used No (0 pt) Altered Elimination No (0 pt) Score/Fall Risk Level 0 - 2 = Low Risk Oriented to surroundings, Maintained a safe environment, Educated pt \T\ family on fall prevention, incl call for assistance when getting out of bed, Assessed \T\ reinforced patient's understanding of fall precautions, Provided non-skid footwear, Hourly rounding (assess needs \T\ fall precautionary measures) done, Used ambulatory aids as needed (educated on \T\ assisted with), Used gait belt as appropriate. Abuse screen: Denies threats or abuse. Denies injuries from another. Nutritional screening: No deficits noted. Tuberculosis screening: No symptoms or risk factors identified. Assessment: 08:45 Reassessment: Patient and family request DNR status, Dr Miranda aware. ko1 08:45 General: Appears distressed, uncomfortable, Behavior is calm, cooperative, appropriate ko1 for age. Pain: Denies pain. Neuro: Level of Consciousness is awake, confused. Cardiovascular: No deficits noted. Respiratory: No deficits noted. GI: No deficits noted. : strong smell of urine. EENT: No deficits noted. Derm: No deficits noted. Musculoskeletal: No deficits noted. Vital Signs: 08:30 BP 140 / 70; Pulse 74; Resp 18; Pulse Ox 99% on R/A; ko1 08:35 BP 156 / 67; Pulse 74; Resp 16; Temp 97.8(O); Pulse Ox 99% ; jb4 09:00 BP 138 / 74; Pulse 71; Resp 18; Pulse Ox 99% ; ko1 09:30 BP 143 / 69; Pulse 72; Resp 18; Pulse Ox 99% ; ko1 10:00 BP 156 / 80; Pulse 75; Resp 16; Pulse Ox 99% ; ko1 10:30 BP 136 / 82; Pulse 75; Resp 18; Pulse Ox 100% ; ko1 11:00 BP 155 / 68; Pulse 75; Resp 16; Pulse Ox 99% ; ko1 17:38 BP 142 / 62; Pulse 62; Resp 16; Pulse Ox 99% on R/A; tm3 ED Course: 08:31 Patient arrived in ED. ms3 08:31 Blu Miranda DO is Attending Physician. ms3 08:35 Fredy Robin, ANTHONY is Primary Nurse. jb4 08:38 Triage completed. jb4 08:38 Arm band placed on left wrist. jb4 08:40 Patient has correct armband on for positive identification. Placed in gown. Bed in low ko1 position. Call light in reach. Side rails up X2. Client placed on continuous cardiac and pulse oximetry monitoring. NIBP monitoring applied. monitoring analyst on. Door closed. Noise minimized. Warm blanket given. Oral care given. eduardo care done. 08:40 No provider procedures requiring assistance completed. ko1 09:20 Inserted saline lock: 22 gauge in right antecubital area, using aseptic technique. ko1 Blood collected. 09:22 Blood Culture Adult (2) Sent. ko1 09:22 CBC with Diff Sent. ko1 09:22 CMP Sent. ko1 09:22 Lactate w/ 2H reflex if indic. Sent. ko1 09:22 Protime (+inr) Sent. ko1 09:22 Ptt, Activated Sent. ko1 10:50 Urine Microscopic Only Sent. ko1 12:09 Tank Kern is Hospitalizing Provider. ms3 15:11 SARS-COV-2 Antigen Rapid Sent. ko1 17:25 Quinn cath inserted, using sterile technique, 16 Fr., by ED staff, balloon inflated, to pf1 gravity drainage, clamped. urine specimen collected. 17:28 Urine collected: Quinn catheter specimen, cloudy. tm3 Administered Medications: 12:09 Drug: Rocephin IV 1 grams Route: IV; Rate: calculated rate; Site: right antecubital; ko1 Medication: 12:17 VIS not applicable for this client. ko1 Output: 17:32 Urine: 1000ml (Quinn); Total: 1000ml. tm3 Outcome: 12:10 Decision to Hospitalize by Provider. ms3 0308 18:50 Patient left the ED. Signatures: Vish Pratheri tm3 Nikki Platt, RN RN Fredy Robin, RN ANTHONY jb4 Blu Miranda DO DO ms3 Magali Bose RN RN ko1 Stephanie malik RN RN pf1 Corrections: (The following items were deleted from the chart) 10/04 12:14 08:00 Reassessment: Patient and family request DNR status, Dr Miranda aware ko1 ko1
--- NOTE | 2022-10-21 14:16 | EDPHYS ---
Physician Documentation [facility] Name: Michell Mejia Age: 82 yrs Sex: Female : 1940 Arrival Date: 10/04/2022 Time: 08:31 Bed 25 Private MD: ED Physician Blu Miranda HPI: 10/04 09:16 This 82 yrs old Female presents to ER via EMS with complaints of Altered mental status. ms3 09:16 82-year-old female with past medical history of anxiety, fibromyalgia, osteoarthritis ms3 presents via [facility] for altered mental status. Nursing staff noted to EMS that patient has been acting different since yesterday. EMS noted patient to have foul-smelling urine. Patient is nonverbal on exam.. Historical: - Allergies: 08:38 No Known Allergies; jb4 - PMHx: 08:38 Anxiety; Fibromyalgia; osteoarthritis; jb4 - Immunization history:: Adult Immunizations up to date. - Social history:: Smoking status: Patient denies any tobacco usage or history of. ROS: 09:16 Unable to obtain ROS due to altered mental status. ms3 Exam: 09:16 Constitutional: This is a well developed, well nourished patient who is awake, alert, ms3 and in no acute distress. Head/Face: Normocephalic, atraumatic. Neck: Trachea midline, no cervical lymphadenopathy. Supple, full range of motion without nuchal rigidity, or vertebral point tenderness. No Meningismus. Chest/axilla: Normal chest wall appearance and motion. Nontender with no deformity. Cardiovascular: Regular rate and rhythm with a normal S1 and S2. No gallops, murmurs, or rubs. Normal PMI, no JVD. No pulse deficits. Respiratory: Lungs have equal breath sounds bilaterally, clear to auscultation and percussion. No rales, rhonchi or wheezes noted. No increased work of breathing, no retractions or nasal flaring. Abdomen/GI: Soft, non-tender, with normal bowel sounds. No distension or tympany. No guarding or rebound. No evidence of tenderness throughout. Skin: Warm, dry with normal turgor. Normal color with no rashes, no lesions, and no evidence of cellulitis. 09:16 Neuro: Orientation: Patient not verbal, Mentation: not verbal, Memory: unable to test, not verbal, Motor: moves all fours, Sensation: Gait: 10:47 ECG was reviewed by the Attending Physician. ms3 Vital Signs: 08:30 BP 140 / 70; Pulse 74; Resp 18; Pulse Ox 99% on R/A; ko1 08:35 BP 156 / 67; Pulse 74; Resp 16; Temp 97.8(O); Pulse Ox 99% ; jb4 09:00 BP 138 / 74; Pulse 71; Resp 18; Pulse Ox 99% ; ko1 09:30 BP 143 / 69; Pulse 72; Resp 18; Pulse Ox 99% ; ko1 10:00 BP 156 / 80; Pulse 75; Resp 16; Pulse Ox 99% ; ko1 10:30 BP 136 / 82; Pulse 75; Resp 18; Pulse Ox 100% ; ko1 11:00 BP 155 / 68; Pulse 75; Resp 16; Pulse Ox 99% ; ko1 17:38 BP 142 / 62; Pulse 62; Resp 16; Pulse Ox 99% on R/A; tm3 MDM: 08:31 Patient medically screened. ms3 09:16 Differential Diagnosis: electrolyte abnormality, sepsis, UTI, volume depletion. ms3 13:10 Data reviewed: vital signs, nurses notes, lab test result(s), radiologic studies, and ms3 as a result, I will admit patient. Consideration of Admission/Observation Patient was admitted/placed on observation. Management of patient was discussed with the following: Hospitalist: Dr Grimm. I considered the following discharge prescriptions or medication management in the emergency department Medications were administered in the Emergency Department. See MAR. Independent interpretation of the following test(s) in the Emergency Department X-Ray: My interpretation is CXR image reviewed by me: Negative for PNA. Historians other than the Patient: EMS: [place]. Counseling: I had a detailed discussion with the patient and/or guardian regarding: the historical points, exam findings, and any diagnostic results supporting the discharge/admit diagnosis, lab results, radiology results, the need for further work-up and treatment in the hospital. ED course: Discussed plan for admission with patient and her son. All questions were answered. They understand and agree with plan. Patient remains in stable condition in the emergency department. Patient's mental status has improved since arrival as patient is now more alert and verbal.. 10/04 08:35 Order name: Blood Culture Adult (2) ms3 10/04 08:35 Order name: CBC with Diff ms3 10/04 08:35 Order name: CMP ms3 10/04 08:35 Order name: Lactate w/ 2H reflex if indic. ms3 10/04 08:35 Order name: Protime (+inr) ms3 10/04 08:35 Order name: Ptt, Activated ms3 10/04 08:35 Order name: Urine Microscopic Only ms3 10/04 09:19 Order name: CBC with Automated Diff; Complete Time: 10:53 EDMS 10/04 09:23 Order name: Protime (+INR); Complete Time: 10:53 EDMS 10/04 09:23 Order name: PTT, Activated Partial Thromb; Complete Time: 10:53 EDMS 10/04 09:37 Order name: Comprehensive Metabolic Panel; Complete Time: 10:53 EDMS 10/04 09:38 Order name: Lactate w/ 2H reflex if indic.; Complete Time: 10:53 EDMS 10/04 10:53 Order name: Urine Dipstick-Ancillary; Complete Time: 11:15 EDMS 10/04 11:32 Order name: Urine Microscopic Only; Complete Time: 12:04 EDMS 10/04 15:03 Order name: SARS-COV-2 Antigen Rapid bd 10/04 16:01 Order name: SARS-COV-2 Antigen Rapid; Complete Time: 16:25 EDMS 10/04 17:27 Order name: NT PRO-BNP; Complete Time: 18:01 EDMS 10/04 17:32 Order name: Phosphorus; Complete Time: 18:01 EDMS 10/04 17:32 Order name: T4 Free; Complete Time: 18:01 EDMS 10/04 17:32 Order name: Magnesium; Complete Time: 18:01 EDMS 10/04 17:32 Order name: Thyroid Stimulating Hormone; Complete Time: 18:01 EDMS 10/05 02:55 Order name: CBC with Automated Diff EDMS 10/05 03:00 Order name: Basic Metabolic Panel EDMS 10/05 06:23 Order name: Urine Culture EDMS 10/05 09:14 Order name: Blood Culture EDMS 10/04 08:35 Order name: Chest Single View XRAY ms3 10/04 09:10 Order name: RAD; Complete Time: 10:53 EDMS 10/04 11:23 Order name: CT Head Brain wo Cont ms3 10/04 11:55 Order name: CT; Complete Time: 12:04 EDMS 10/04 16:28 Order name: MRI; Complete Time: 16:30 EDMS 10/04 08:35 Order name: EKG; Complete Time: 08:36 ms3 10/04 08:35 Order name: Accucheck; Complete Time: 10:50 ms3 10/04 08:35 Order name: Cardiac monitoring; Complete Time: 08:39 ms3 10/04 08:35 Order name: EKG - Nurse/Tech; Complete Time: 09:22 ms3 10/04 08:35 Order name: IV Saline Lock - Large Bore; Complete Time: 09:23 ms3 10/04 08:35 Order name: Labs collected and sent; Complete Time: 09:23 ms3 10/04 08:35 Order name: O2 Per Protocol; Complete Time: 08:39 ms3 10/04 08:35 Order name: O2 Sat Monitoring; Complete Time: 08:39 ms3 10/04 08:35 Order name: Urine Dipstick-Ancillary (obtain specimen); Complete Time: 10:50 ms3 10/04 08:35 Order name: Vital Signs; Complete Time: 08:39 ms3 EC:47 Rate is 76 beats/min. Rhythm is regular. QRS Lee is Normal. MA interval is normal. ms3 Clinical impression: Normal ECG and with PVC. Interpreted by me. Reviewed by me. Administered Medications: 12:09 Drug: Rocephin IV 1 grams Route: IV; Rate: calculated rate; Site: right antecubital; ko1 Disposition: 13:12 Chart complete. ms3 Disposition Summary: 10/04/22 12:10 Hospitalization Ordered Hospitalization Status: Inpatient Admission ms3 Provider: Tank Kern ms3 Condition: Stable ms3 Problem: new ms3 Symptoms: have improved ms3 Bed/Room Type: Standard ms3 Location: Telemetry/MedSurg (Inpatient)(10/05/22 15:20) dw Room Assignment: [facility](10/05/22 15:20) dw Diagnosis - UTI/ Urinary tract infection, site not specified ms3 - Muscle weakness (generalized) ms3 - Altered mental status, unspecified ms3 Forms: - Medication Reconciliation Form ms3 - SBAR form ms3 Signatures: Dispatcher [employer] [facility], Alyssia, RN RN dw Coral Keith, ANTHONY RN cg Fredy Robin, RN RN jb4 Blu Miranda DO DO ms3 Magali Bose, RN RN ko1 Corrections: (The following items were deleted from the chart) 19:58 12:10 Telemetry/MedSurg (Inpatient) ar3 :58 12:10 ms3 cg 10/05 15:20 10/04 19:58 [facility] dw 10/05 15:20 10/04 19:58 [facility]
== END 2022-10-07 15:25 | DRG 689 ==
LOC: ER 08:26 → ERHOLD 14:44 → 4TH 10-05 18:16
PROVIDERS: ADMIT Hospitalist; ATTEND Hospitalist
DX: N39.0 Urinary tract infection, site not specified (principal); G92.9 Unspecified toxic encephalopathy; F05 Delirium due to known physiological condition; M79.7 Fibromyalgia; M19.90 Unspecified osteoarthritis, unspecified site; F03.90 Unspecified dementia, unspecified severity, without behavioral disturbance, psychotic disturbance, mood disturbance, and anxiety; N18.2 Chronic kidney disease, stage 2 (mild); F41.9 Anxiety disorder, unspecified; R60.9 Edema, unspecified; Z20.822 Contact with and (suspected) exposure to COVID-19
CPT/HCPCS: 36415; 51702; 70450; 70551; 71045; 80048; 80053; 81003; 81015; 83605; 83735; 83880; 84100; 84439; 84443; 85025; 85610; 85730; 87040; 87077; 87086; 87088; 87186; 87811; 93005; 93306; 96374; 97112; 97116; 97161; 97530; 99285; J1650; J1940; J3480; J7050; U0003

== ENCOUNTER 2023-02-27 17:47 | Emergency (ER) | payer OTHER ==
[2023-02-27] MEDS ORDERED: TDAP (DIPHTH,PERTUSS(ACELL),TET VAC) 0.5 ML VIAL IMVAC ONE (18:33)
[2023-02-27] MEDS ORDERED: DERMABOND SKIN ADHESIVE TOP ONE ×2 (18:33→19:10)
--- NOTE | 2023-02-27 18:46 | RAD REPORT ---
EXAM DESCRIPTION: CT - [id number] - 02/27/2023 6:18 pm CLINICAL HISTORY: Trauma, head and neck injury. pain sp fall COMPARISON: Head C Spine Mpr Wo Con dated 10/24/2022; Head C Spine Mpr Wo Con dated 05/12/2022; Head C Spine Mpr Wo Con dated 11/28/2021; C Spine Wo Con dated 11/07/2021 TECHNIQUE: Axial 5 mm thick images of the head were obtained. Axial 2 mm thick images of the cervical spine were obtained with sagittal and coronal reconstruction images generated and reviewed. All CT scans are performed using dose optimization technique as appropriate and may include automated exposure control or mA/KV adjustment according to patient size. FINDINGS: CT HEAD WITHOUT CONTRAST: No acute hemorrhage, hydrocephalus or extra-axial collection is identified.No areas of brain edema or midline shift. Mild chronic small vessel ischemic changes. The paranasal sinuses and mastoids are clear.The calvarium is intact. CT CERVICAL SPINE WITHOUT CONTRAST: No fracture or subluxation.No prevertebral soft tissues swelling is identified. Title ceases C3 and C 4 noted. Varying degrees of neural foraminal narrowing identified. IMPRESSION: No acute intracranial or cervical spine findings.
--- NOTE | 2023-02-27 18:52 | RAD REPORT ---
EXAM DESCRIPTION: RAD - Knee Right 3 View - 02/27/2023 6:43 pm CLINICAL HISTORY: pain sp fall COMPARISON: No comparisons FINDINGS/IMPRESSION: No acute fracture. No malalignment. Medial and lateral compartment chondrocalci nosis. Patellofemoral compartment spurring. Lateral view limited. Unable to adequately assess for a k nee effusion.
--- NOTE | 2023-02-27 18:55 | RAD REPORT ---
EXAM DESCRIPTION: RAD - Pelvis - 02/27/2023 6:43 pm CLINICAL HISTORY: pain sp fall COMPARISON: No comparisons FINDINGS/IMPRESSION: No acute fracture. No malalignment. Mild bilateral acetabular degenerative ba ges. Fusion hardware in the lumbar spine. Osteopenia.
--- NOTE | 2023-02-27 18:55 | RAD REPORT ---
EXAM DESCRIPTION: RAD - Chest Single View - 02/27/2023 6:43 pm CLINICAL HISTORY: pain sp fall COMPARISON: Chest Single View dated 10/04/2022 FINDINGS: Lines: None. Lungs: No evidence of edema or pneumonia. Pleural: No significant pleural effusions or pneumothorax. Cardiac: The heart size is within normal limits. Mediastinum: Within normal limits. Bones: No acute fractures. Other: None IMPRESSION: No acute cardiopulmonary disease.
--- NOTE | 2023-02-27 19:07 | ER ---
Nurse's Notes [facility] Name: Michell Mejia Age: 82 yrs Sex: Female : 1940 Arrival Date: 02/27/2023 Time: 17:47 Bed 20 Private MD: Diagnosis: History of falling;closed head injury, facial laceration Presentation: 02/27 18:14 Chief complaint: EMS states: Toned out for fall from standing, laceration to right eye jl7 laceration and right knee superficial abrasions. Pt at baseline, A\T\O to none. Coronavirus screen: At this time, the client does not indicate any symptoms associated with coronavirus-19. Ebola Screen: No symptoms or risks identified at this time. Initial Sepsis Screen: Does the patient meet any 2 criteria? No. Patient's initial sepsis screen is negative. Does the patient have a suspected source of infection? No. Patient's initial sepsis screen is negative. Risk Assessment: Do you want to hurt yourself or someone else? Patient reports no desire to harm self or others. Onset of symptoms was February 27, 2023. Care prior to arrival: VSS. 18:14 Method Of Arrival: EMS: [facility] jl7 18:14 Acuity: RAFAEL 3 jl7 Historical: - Allergies: 18:16 No Known Allergies; jl7 - Home Meds: 18:16 Depakote Sprinkles Oral [Active]; Hydroxyzine Pamoate Oral [Active]; loperamide 2 mg jl7 Oral capsule [Active]; metoprolol tartrate 50 mg Oral tablet [Active]; mirtazapine 15 mg Oral Tablet,disintegrating [Active]; - PMHx: 18:16 Alzheimer's disease; Anxiety; Dementia; Fibromyalgia; osteoarthritis; Hypertensive jl7 disorder; Kidney disease; - Immunization history:: Adult Immunizations up to date. - Social history:: Smoking status: unknown. Screenin:10 [facility] ED Fall Risk Assessment (Adult) History of falling in the last 3 months, jl7 including since admission Yes- single mechanical fall (1 pt) Confusion or Disorientation Yes (5 pts) Intoxicated or Sedated No (0 pts) Impaired Gait No (0 pts) Mobility Assist Device Used No (0 pt) Altered Elimination Yes (1 pt) Score/Fall Risk Level 3 or more points = High Risk Maintained a safe environment, Hourly rounding (assess needs \T\ fall precautionary measures) done. Abuse screen: unable to obtain. Nutritional screening: No deficits noted. Tuberculosis screening: No symptoms or risk factors identified. Assessment: 18:10 General: Appears in no apparent distress. uncomfortable, slender, unkempt, Behavior is jl7 restless, uncooperative. Pain: Unable to use pain scale. Does not appear to understand pain scale. Neuro: Level of Consciousness is awake, alert, Oriented to none Baseline. Cardiovascular: Patient's skin is warm and dry. Respiratory: Airway is patent Respiratory effort is even, unlabored, Respiratory pattern is regular, symmetrical. GI: Abdomen is non-distended, Last BM was February 27, 2023. :. Derm: Skin is pink, warm \T\ dry. Injury Description: Abrasion sustained to right knee Laceration sustained to middle aspect of right eyebrow and outer aspect of right eyebrow. 19:21 Reassessment: Nurse to nurse report received by Candida at [facility]. Candida states that [address] must call for ambulance to transport [facility]. Informed Candida that [facility] has contract with [facility] and provided contact phone number. Advised to call us back with ETA. 19:42 Reassessment: Called Candida Busch states her shipyard painting supervisor is working on transport at [facility] this time and will call us back. Vital Signs: 18:10 BP 124 / 68; Pulse 79; Resp 15; Temp 97.9; Pulse Ox 100% ; jl7 ED Course: 17:57 Patient arrived in ED. iw 17:58 Jose Antonio Serrato MD is Attending Physician. jr11 18:10 Patient has correct armband on for positive identification. Bed in low position. Call jl7 light in reach. Side rails up X2. Provided Education on: none. Pulse ox on. NIBP on. 18:10 Warm blanket given. jl7 18:10 Assist provider with laceration repair on right eye that was between 2.6 to 7.5 cm jl7 using Dermabond. Set up tray. Performed by Jose Antonio Serrato MD Patient tolerated poorly. 18:13 Amanuel Hyde, ANTHONY is Primary Nurse. jl7 18:16 Triage completed. jl7 18:16 Arm band placed on right wrist. jl7 18:19 CT Head C Spine In Process Unspecified. EDMS 18:45 XRAY Chest (1 view) In Process Unspecified. EDMS 18:45 XRAY Pelvis In Process Unspecified. EDMS 18:46 Knee Right 3 View XRAY In Process Unspecified. EDMS 19:21 Patient did not have IV access during this emergency room visit. [facility] Administered Medications: 19:17 Drug: Tetanus-Diphtheria Toxoid IM Adult 0.5 ml {Optometrist/Practice Owner: [employer] ([employer]). jl7 Exp: 08/17/2023. Lot #: [id number]. } Route: IM; Site: right deltoid; 19:17 Follow up: Response: No adverse reaction [facility] Medication: 18:10 Vaccine Information Statement (VIS) provided today. Questions and/or concerns [facility] addressed. VIS edition date: March 05, 2021. Outcome: 19:06 Discharge ordered by MD. nguyen 20:43 Patient left the ED. [facility] Signatures: Dispatcher [employer] Vanna Carson RN RN iw Amanuel Hyde RN RN jl7 Rosillo, Jose, MD MD [facility] Terry RN RN [facility] Corrections: (The following items were deleted from the chart) 19:32 19:21 Reassessment: Nurse to nurse report received by Candida [place] [id number]
--- NOTE | 2023-02-27 19:07 | EDPHYS ---
Physician Documentation [facility] Name: Michell Mejia Age: 82 yrs Sex: Female : 1940 Arrival Date: 02/27/2023 Time: 17:47 Bed 20 Private MD: ED Physician Jose Antonio Serrato HPI: 02/27 18:20 This 82 yrs old Female presents to ER via EMS with complaints of fall. jr11 18:20 Patient is an 82-year-old has a history of severe dementia, usually pretty altered jr11 psychotic, was leaning forward and fell forward out of her wheelchair striking the right eyebrow right knee. No syncopal spell, patient otherwise at baseline. Per EMS, vitals stable.. Historical: - Allergies: 18:16 No Known Allergies; jl7 - Home Meds: 18:16 Depakote Sprinkles Oral [Active]; Hydroxyzine Pamoate Oral [Active]; loperamide 2 mg jl7 Oral capsule [Active]; metoprolol tartrate 50 mg Oral tablet [Active]; mirtazapine 15 mg Oral Tablet,disintegrating [Active]; - PMHx: 18:16 Alzheimer's disease; Anxiety; Dementia; Fibromyalgia; osteoarthritis; Hypertensive jl7 disorder; Kidney disease; - Immunization history:: Adult Immunizations up to date. - Social history:: Smoking status: unknown. ROS: 18:20 Unable to obtain ROS due to dementia . jr11 Exam: 18:20 Constitutional: This is a well developed, well nourished patient who is awake, alert, jr11 and in no acute distress. Head/Face: 4 cm laceration R eyebrow Eyes: Extra-ocular motions intact. Lids and lashes normal. Conjunctiva and sclera are non-icteric and not injected. Cornea within normal limits. Periorbital areas with no swelling, redness, or edema. Neck: Trachea midline, no thyromegaly or masses palpated, and no cervical lymphadenopathy. Supple, full range of motion without nuchal rigidity, or vertebral point tenderness. No Meningismus. Chest/axilla: Normal chest wall appearance and motion. Nontender with no deformity. No lesions are appreciated. Cardiovascular: Regular rate and rhythm with a normal S1 and S2. No gallops, murmurs, or rubs. Normal PMI, no JVD. No pulse deficits. Respiratory: Lungs have equal breath sounds bilaterally, clear to auscultation and percussion. No rales, rhonchi or wheezes noted. No increased work of breathing, no retractions or nasal flaring. Abdomen/GI: Soft, non-tender, with normal bowel sounds. No distension or tympany. No guarding or rebound. No evidence of tenderness throughout. Back: No spinal tenderness. No costovertebral tenderness. Full range of motion. Skin: Warm, dry with normal turgor. Normal color with no rashes, no lesions, and no evidence of cellulitis. small 1x1 abrasion over R knee Vital Signs: 18:10 BP 124 / 68; Pulse 79; Resp 15; Temp 97.9; Pulse Ox 100% ; jl7 Laceration: 18:20 Wound Repair of 4cm ( 1.6in ) subcutaneous laceration to middle aspect of right eyebrow jr11 and right supraorbital ridge. Linear shaped.. Distal neuro/vascular/tendon intact. Wound prep: Simple cleansing by nurse. Skin closed with 1-0 Adhesive skin closure using simple sutures and sterile technique. Dressed with glue . Patient tolerated well. MDM: 18:06 Patient medically screened. 11 18:20 Differential diagnosis: abrasion, closed head injury, contusion, fracture, laceration, jr11 sprain, strain. Data reviewed: vital signs, nurses notes. 19:04 ED course: Pelvis x-ray interpreted by me shows no fracture, chest x-ray, shows no jr11 pneumonia interpreted by me. Patient with contusion, lack repair was successful with Dermabond. Patient to use her home medication, Tylenol as needed for pain.. 19:04 ED course: Vitals per EMS within normal.. 02/27 18:05 Order name: CT Head C Spine; Complete Time: 19:02/27 18:05 Order name: XRAY Chest (1 view); Complete Time: 19:02/27 18:05 Order name: XRAY Pelvis; Complete Time: 19:02/27 18:05 Order name: Knee Right 3 View XRAY; Complete Time: 19:02/27 18:05 Order name: Labs collected and sent; Complete Time: 19:12 02/27 18:05 Order name: Wound Care; Complete Time: 19:12 jr11 Administered Medications: 19:17 Drug: Tetanus-Diphtheria Toxoid IM Adult 0.5 ml {Business Office Assistant: [employer]). jl7 Exp: 08/17/2023. Lot #: [id number]. } Route: IM; Site: right deltoid; 19:17 Follow up: Response: No adverse reaction jl7 Disposition Summary: 02/27/23 19:06 Discharge Ordered Location: Home [facility] Condition: Stable jr11 Diagnosis - History of falling jr11 - closed head injury, facial laceration jr11 Discharge Instructions: - Discharge Summary Sheet jr11 - Head Injury, Adult jr11 - Fall Prevention in the Home, Adult jr11 - Laceration Care, Adult jr11 Forms: - Medication Reconciliation Form jr11 - Thank You Letter jr11 - Antibiotic Education jr11 - Prescription Opioid Use jr11 - Patient Portal Instructions jr11 Signatures: Dispatcher [employer] Amanuel Mitchell RN RN jl7 Jose Antonio Serrato MD MD jr11
[2023-02-27 21:08] VITALS: BP 124/68; TEMP 97.9; O2SAT 100
== END 2023-02-27 20:43 | disposition home or self-care (01) ==
LOC: ER 17:47
PROC: 0HQ1XZZ Repair Face Skin, External Approach (ICD-10-PCS; principal; 2023-02-27)
DX: S01.111A Laceration without foreign body of right eyelid and periocular area, initial encounter (principal); S09.90XA Unspecified injury of head, initial encounter; Z91.81 History of falling; Z23 Encounter for immunization; G30.9 Alzheimer's disease, unspecified; F02.80 Dementia in other diseases classified elsewhere, unspecified severity, without behavioral disturbance, psychotic disturbance, mood disturbance, and anxiety
CPT/HCPCS: 70450; 71045; 72125; 72170; 90471; 99284

== ENCOUNTER 2023-03-10 16:27 | Inpatient (IN) | payer OTHER ==
--- NOTE | 2023-03-10 17:07 | RAD REPORT ---
EXAM DESCRIPTION: CT - [id number] - 03/10/2023 5:01 pm CLINICAL HISTORY: Trauma, head and neck injury. MENTAL STATUS CHANGE COMPARISON: <Comparisons> TECHNIQUE: Axial 5 mm thick images of the head were obtained. Axial 2 mm thick images of the cervical spine were obtained with sagittal and coronal reconstruction images generated and reviewed. All CT scans are performed using dose optimization technique as appropriate and may include automated exposure control or mA/KV adjustment according to patient size. FINDINGS: CT HEAD WITHOUT CONTRAST: No acute hemorrhage, hydrocephalus or extra-axial collection is identified.Moderate generalized brain atrophy is present with mild periventricular and deep white matter chronic microvascular ischemic ch anges.No areas of brain edema or midline shift. The paranasal sinuses and mastoids are clear.The calvarium is intact. CT CERVICAL SPINE WITHOUT CONTRAST: No fracture or subluxation.Moderate lower cervical degenerative changes.No prevertebral soft tissues swelling is identified. IMPRESSION: No acute intracranial or cervical spine findings.
[2023-03-10] MEDS ORDERED: NA CHLORIDE 0.9% 1,000 ML ONE (17:09)
[2023-03-10 17:54] LABS: Absolute Lymphocytes (CBC) 0.7 K/uL (0.7-4.9); Hematocrit 34.7 % (36.0-45.0); Lymphocytes % 7.9 % (15.3-44.8); MCV 87.7 fL (80-100); MPV 7.8 fL (7.6-11.3); Platelets 106 thou/uL (152-406); RBC Red Blood Cell Count 3.96 M/uL (3.86-4.86)
[2023-03-10 17:59] LABS: Protime INR 0.96
--- NOTE | 2023-03-10 18:08 | RAD REPORT ---
EXAM DESCRIPTION: RAD - Chest Single View - 03/10/2023 5:59 pm CLINICAL HISTORY: AMS Chest pain. COMPARISON: <Comparisons> FINDINGS: Portable technique limits examination quality. The lungs are grossly clear. The heart is normal in size. No displaced fractures. IMPRESSION: No acute intrathoracic process suspected.
[2023-03-10 18:15] LABS: Anisocytosis 1+; Blood Morphology Comment NOTED (NOT SEEN); Platelet Estimate DECR; White Blood Cell Scan OK (OK)
[2023-03-10 18:19] LABS: Albumin 2.4 g/dL (3.4-5.0); Bilirubin Total 0.3 mg/dL (0.2-1.0); Protein, Total 5.7 g/dL (6.4-8.2); Troponin High Sensitivity 9.4 pg/mL (<58.9)
[2023-03-10 18:22] LABS: Potassium 3.8 mEq/L (3.5-5.1)
[2023-03-10 19:11] LABS: Specific Gravity 1.007 (1.005-1.030); Urine Bacteria 20-50 /HPF (<20); Urine Bilirubin NEGATIVE (Negative); Urine Blood 3+ (Negative); Urine Clarity Extremely Turbid (Clear); Urine Color Light-Orange (Yellow); Urine Glucose NEGATIVE (Negative); Urine Protein 2+ (Negative); Urine RBC >50 /HPF (None Seen); Urine Urobilinogen Normal (Normal); Urine WBC Clump Many /HPF (None Seen)
[2023-03-10] MEDS ORDERED: CEFTRIAXONE 1000 MG/VIAL ONE (19:37)
--- NOTE | 2023-03-10 20:02 | RAD REPORT ---
EXAM DESCRIPTION: CT - Chest Abdomen Pelvis W Cont - 03/10/2023 7:53 pm CLINICAL HISTORY: Chest and abdomen pain. uti COMPARISON: <Comparisons> TECHNIQUE: Approximately 100 mL nonionic IV contrast was administered to the patient. All CT scans are performed using dose optimization technique as appropriate and may include automated exposure control or mA/KV adjustment according to patient size. FINDINGS: The lungs are clear.No pleural or pericardial effusion.No intrathoracic adenopathy. The liver, spleen, pancreas, adrenal glands and kidneys are within normal limits. No bowel obstruction, free air, free fluid or abscess. Moderate stool is retained in the rectosigmoid colon. No pathologic lymphadenopathy in the abdomen or pelvis. Significantly thickened and enhancing bladder wall compatible with cystitis. Postoperative hardware l umbar spine. IMPRESSION: Severe cystitis suspected.No abscess is visualized.
[2023-03-10] MEDS ORDERED: ONDANSETRON 4 MG/2 ML VIAL IV PRN (20:10)
[2023-03-10] MEDS ORDERED: ACETAMINOPHEN 500 MG TAB PO PRN (20:10)
--- NOTE | 2023-03-10 20:35 | ER ---
Nurse's Notes [facility] Name: Michell Mejia Age: 82 yrs Sex: Female : 1940 Arrival Date: 03/10/2023 Time: 16:27 Bed 6 Private MD: Diagnosis: Altered mental status, unspecified;UTI/ Urinary tract infection, site not specified Presentation: 03/10 16:35 Chief complaint: EMS states: toned out to [facility] for AMS since after breakfast at iw 0700 today, she normally walks, sings, talks, normally confused but still talks, she has not gotten out of bed today which is not normal for her. Coronavirus screen: At this time, the client does not indicate any symptoms associated with coronavirus-19. Ebola Screen: Patient negative for fever greater than or equal to 101.5 degrees Fahrenheit, and additional compatible Ebola Virus Disease symptoms Patient denies exposure to infectious person. Patient denies travel to an Ebola-affected area in the 21 days before illness onset. No symptoms or risks identified at this time. 16:35 Method Of Arrival: EMS: [facility] iw 16:38 Risk Assessment: Do you want to hurt yourself or someone else? Patient reports no iw desire to harm self or others. 16:38 Acuity: RAFAEL 3 iw Historical: - Allergies: 16:50 No Known Allergies; iw - Home Meds: 16:55 Depakote Sprinkles 125 mg oral Capsule, Delayed Release Sprinkle [Active]; hydroxyzine iw pamoate Oral [Active]; loperamide 2 mg Oral capsule [Active]; metoprolol tartrate 50 mg Oral tablet [Active]; mirtazapine 15 mg Oral Tablet,disintegrating [Active]; - PMHx: 16:38 Alzheimer's disease; Anxiety; Dementia; Fibromyalgia; Hypertensive disorder; kidney iw disease; osteoarthritis; Screenin:52 [facility] ED Fall Risk Assessment (Adult) History of falling in the last 3 months, iw including since admission Yes- single mechanical fall (1 pt) Confusion or Disorientation Yes (5 pts) Score/Fall Risk Level. Abuse screen: Denies injuries from another. Nutritional screening: No deficits noted. Tuberculosis screening: No symptoms or risk factors identified. Assessment: 16:52 General: Appears ill, slender, Behavior is restless. Pain: Unable to use pain scale. iw Does not appear to understand pain scale. Neuro: Level of Consciousness is awake, confused, Oriented to none Manager Process Improvement are equal bilaterally. Cardiovascular: Respiratory: Respiratory effort is even, unlabored, Respiratory pattern is regular. GI: Abdomen is flat, non-distended. Derm: Skin is fragile, is thin, Skin is pale. 18:30 Reassessment: Patient appears in no apparent distress at this time. pt appears more iw relaxed, urine collected via straight cath, urine is green and malodorous. 19:42 General: Appears in no apparent distress. ill, slender, Behavior is restless. Pain: jw7 Unable to use pain scale. Patient appears to be guarding, to be moaning, restless. Neuro: Hughes Agitation-Sedation Scale (RASS): +1 Restless Level of Consciousness is awake, confused, Oriented to none Manager Process Improvement are equal bilaterally. Cardiovascular: Capillary refill < 3 seconds. Respiratory: Airway is patent Trachea midline Respiratory effort is even, unlabored, Respiratory pattern is regular, symmetrical. GI: Abdomen is flat, non-distended. :. Derm: Skin is fragile, is thin, Skin is pale, Skin temperature is warm. Musculoskeletal: 21:58 General: attempted to call report, nurse busy will call back . jw7 Vital Signs: 16:35 BP 108 / 91; Resp 19; Temp 97.4(TE); Pulse Ox 97% on R/A; iw 17:52 BP 94 / 72; Pulse 56; Resp 16; Pulse Ox 98% on R/A; iw 18:58 BP 143 / 72; Pulse 52; Resp 19 S; Pulse Ox 100% on R/A; iw ED Course: 16:31 Patient arrived in ED. eb 16:34 Vanna Hernandez, RN is Primary Nurse. iw 16:38 Raheel Daigle PA is PHCP. cp 16:38 Ana Luisa Nascimento MD is Attending Physician. cp 16:38 Triage completed. iw 16:51 Arm band placed on. iw 16:52 Inserted Maintain EMS IV. Dressing intact. Good blood return noted. Site clean \T\ dry. iw Gauge \T\ site: 20 left hand. 16:54 Patient has correct armband on for positive identification. iw 17:00 Provided Education on: pt does not understand. iw 17:01 CT Head C Spine In Process Unspecified. EDMS 17:42 Inserted saline lock: 20 gauge in right wrist, using aseptic technique. iw 18:00 Chest Single View XRAY In Process Unspecified. EDMS 18:45 Urinalysis w/ reflexes Sent. iw 19:54 CT Chest, Abdomen, Pelvis - W/Contrast In Process Unspecified. EDMS 20:33 [facility] Brody is Hospitalizing Provider. cp Administered Medications: 17:52 Drug: NS 0.9% IV 500 ml Route: IV; Rate: bolus; Site: right wrist; iw 18:30 Follow up: IV Status: Completed infusion iw 17:53 Drug: NS 0.9% IV 500 ml Route: IV; Rate: 75 ml/hr; Site: right wrist; iw 19:41 Drug: Rocephin IV 1 grams Route: IV; Rate: calculated rate; Site: left hand; jw7 Medication: 16:52 VIS not applicable for this client. iw Outcome: 20:35 Decision to Hospitalize by Provider. cp 23:04 Patient left the ED. kl Signatures: Dispatcher [employer] EDNY Snow Valverde RN RN Vanna Arcos RN RN Raheel Daigle PA PA cp Lena Mosqueda Jodi, RN RN jw7 Corrections: (The following items were deleted from the chart) 17:42 16:35 BP 108 / 91; Resp 19bpm; iw iw 19:00 18:59 Reassessment: Patient appears in no apparent distress at this time. pt appears iw more relaxed, urine collected via straight cath, urine is green and malodorous iw 22:00 21:59 Initial Sepsis Screen: Does the patient meet any 2 criteria? jw7 jw7
--- NOTE | 2023-03-10 20:35 | EDPHYS ---
Physician Documentation [facility] Name: Michell Mejia Age: 82 yrs Sex: Female : 1940 Arrival Date: 03/10/2023 Time: 16:27 Bed 6 Private MD: ED Physician Ana Luisa Nascimento HPI: 03/10 16:54 This 82 yrs old Female presents to ER via EMS with complaints of Altered Mental Status. cp 16:54 The patient presents with decreased mental status. Onset: The symptoms/episode cp began/occurred reportedly by [facility] staff sometime after breakfast and around lunchtime at 1100. Possible causes: unknown. Associated signs and symptoms: Pertinent negatives: fever. Current symptoms: In the emergency department the patient's symptoms are unchanged from the initial presentation, despite home interventions. Patient's baseline: Neuro: alert but confused, Motor: no deficits, Ambulation: walks with assist only, Speech: the patient makes incomprehensible sounds. Historical: - Allergies: 16:50 No Known Allergies; iw - Home Meds: 16:55 Depakote Sprinkles 125 mg oral Capsule, Delayed Release Sprinkle [Active]; hydroxyzine iw pamoate Oral [Active]; loperamide 2 mg Oral capsule [Active]; metoprolol tartrate 50 mg Oral tablet [Active]; mirtazapine 15 mg Oral Tablet,disintegrating [Active]; - PMHx: 16:38 Alzheimer's disease; Anxiety; Dementia; Fibromyalgia; Hypertensive disorder; kidney iw disease; osteoarthritis; ROS: 17:00 Constitutional: Negative for fever. cp 17:00 Eyes: Negative for injury, pain, redness, and discharge. cp 17:00 Respiratory: Negative for wheezing. 17:00 Abdomen/GI: Negative for vomiting, diarrhea. 17:00 Neuro: Positive for altered mental status. 17:00 Unable to obtain ROS due to altered mental status. Exam: 17:05 Constitutional: The patient appears in no acute distress, alert, awake, cp non-diaphoretic, non-toxic, well developed, frail. 17:05 Head/face: mild swelling, ecchymosis noted right side of face from previous fall cp injury. 17:05 Eyes: Periorbital structures: appear normal, Pupils: equal, round, and reactive to light and accomodation, Conjunctiva: normal, no exudate, no injection, Sclera: no appreciated abnormality, Lids and lashes: appear normal, bilaterally. 17:05 ENT: External ear(s): are unremarkable, Ear canal(s): are normal, clear, TM's: dullness, bilaterally, Nose: is normal, Mouth: Lips: moist, Oral mucosa: pink and intact, moist, Posterior pharynx: is normal, airway is patent, no erythema, no exudate. 17:05 Neck: C-spine: vertebral tenderness, is not appreciated, crepitus, is not appreciated. 17:05 Chest/axilla: Inspection: normal, Palpation: is normal, no crepitus, no tenderness. 17:05 Cardiovascular: Rate: bradycardic, Rhythm: regular, Edema: is not appreciated, JVD: is not appreciated. 17:05 Respiratory: the patient does not display signs of respiratory distress, Respirations: normal, no use of accessory muscles, no retractions, labored breathing, is not present, Breath sounds: are clear throughout, no decreased breath sounds, no stridor, no wheezing. 17:05 Abdomen/GI: Inspection: abdomen appears normal, Bowel sounds: active, all quadrants, Palpation: soft, in all quadrants, nontender, in all quadrants. 17:05 Skin: cellulitis, is not appreciated, no rash present. 17:05 Neuro: Orientation: unable to test, HX of Alzheimer's disease, Mentation: sleepy, Motor: moves all fours. 17:38 ECG was reviewed by the Attending Physician. cp Vital Signs: 16:35 BP 108 / 91; Resp 19; Temp 97.4(TE); Pulse Ox 97% on R/A; iw 17:52 BP 94 / 72; Pulse 56; Resp 16; Pulse Ox 98% on R/A; iw 18:58 BP 143 / 72; Pulse 52; Resp 19 S; Pulse Ox 100% on R/A; iw MDM: 16:50 Patient medically screened. cp 19:20 Data reviewed: vital signs, nurses notes, lab test result(s), EKG, radiologic studies, cp plain films. 19:20 Differential Diagnosis: electrolyte abnormality, hypoglycemia, intracranial bleed, cp pneumonia, sepsis, TIA, UTI. Consideration of Admission/Observation Patient was admitted/placed on observation. Management of patient was discussed with the following: Hospitalist: Sinai Brody, [employer] will admit after discussion of today's results. I considered the following discharge prescriptions or medication management in the emergency department Medications were administered in the Emergency Department. See MAR. Care significantly affected by the following chronic conditions: Hypertension, dementia, Alzheimer's. 03/10 16:54 Order name: Blood Culture Adult (2) cp 03/10 16:54 Order name: CBC with Diff; Complete Time: 18:37 cp 03/10 18:10 Interpretation: Normal except: HGB 11.1; HCT 34.7; MCHC 31.9; PLT 106; RDW 20.5; ALEX% cp 86.4; LYM% 7.9. 03/10 16:54 Order name: CMP; Complete Time: 18:37 cp 03/10 19:10 Interpretation: Normal except: GLUC 115; BUN 34; GFR 61. cp 03/10 16:54 Order name: Lactate w/ 2H reflex if indic.; Complete Time: 18:10 cp 03/10 16:54 Order name: Protime (+inr); Complete Time: 18:10 cp 03/10 16:54 Order name: Ptt, Activated; Complete Time: 18:10 cp 03/10 16:54 Order name: Urinalysis w/ reflexes; Complete Time: 19:13 cp 03/10 16:54 Order name: Troponin High Sensitivity; Complete Time: 18:37 cp 03/10 16:54 Order name: Magnesium; Complete Time: 18:37 cp 03/10 18:16 Order name: CBC Smear Scan; Complete Time: 18:37 EDMS 03/10 19:15 Order name: Urine Culture EDMS 03/10 20:12 Order name: Urinalysis w/ reflexes EDMS 03/10 20:12 Order name: Basic Metabolic Panel EDMS 03/10 20:12 Order name: Basic Metabolic Panel EDMS 03/10 20:12 Order name: Basic Metabolic Panel EDMS 03/10 20:12 Order name: Basic Metabolic Panel EDMS 03/10 20:12 Order name: CBC with Automated Diff EDMS 03/10 20:12 Order name: CBC with Automated Diff EDMS 03/10 20:12 Order name: CBC with Automated Diff EDMS 03/10 20:12 Order name: CBC with Automated Diff EDMS 03/10 20:12 Order name: Magnesium EDMS 03/10 20:12 Order name: Magnesium EDMT 03/10 20:12 Order name: Magnesium EDMT 03/10 20:12 Order name: Magnesium [facility] 03/10 16:54 Order name: Chest Single View XRAY; Complete Time: 18:10 03/10 16:54 Order name: CT Head C Spine; Complete Time: 17:15 03/10 17:16 Interpretation: Reviewed report. 03/10 19:15 Order name: CT Chest, Abdomen, Pelvis - W/Contrast; Complete Time: 20:32 03/10 16:54 Order name: EKG; Complete Time: 16:55 03/10 20:12 Order name: 60g Consistent Carbohydrate (ADA ) [facility] 03/10 16:54 Order name: Accucheck; Complete Time: 18:46 03/10 16:54 Order name: Cardiac monitoring; Complete Time: 17:53 03/10 16:54 Order name: EKG - Nurse/Tech; Complete Time: 17:53 03/10 16:54 Order name: IV Saline Lock - Large Bore; Complete Time: 17:53 03/10 16:54 Order name: Labs collected and sent; Complete Time: 17:53 03/10 16:54 Order name: O2 Per Protocol; Complete Time: 17:53 03/10 16:54 Order name: O2 Sat Monitoring; Complete Time: 17:53 03/10 16:54 Order name: Vital Signs; Complete Time: 17:53 03/10 18:07 Order name: Labs - recollect needed: recollect blood cultures red tube underfilled; eb Complete Time: 18:21 EC:38 Rate is 50 beats/min. Rhythm is regular. MI interval is normal. QRS interval is normal. cp QT interval is normal. T waves are Inverted in leads aVL, aVR, V2. Interpreted by me. Reviewed by me. Administered Medications: 17:52 Drug: NS 0.9% IV 500 ml Route: IV; Rate: bolus; Site: right wrist; iw 18:30 Follow up: IV Status: Completed infusion iw 17:53 Drug: NS 0.9% IV 500 ml Route: IV; Rate: 75 ml/hr; Site: right wrist; iw 19:41 Drug: Rocephin IV 1 grams Route: IV; Rate: calculated rate; Site: left hand; jw7 Disposition: 19:00 I reviewed the patient's care provided by Advanced Practice Provider \T\ agree w/ the cp3 diagnosis \T\ care plan. I personally saw the pt \T\ performed a substantive portion of the visit, incldng all aspects of the (History/Exam/Medical Decision Making). ED attending note: Patient is a 82-year-old [facility] who was brought for altered mental status. On initial exam vital signs stable patient with moderate drop in blood pressure that is responding to IV fluids. Patient has a past medical history significant for Alzheimer's dementia, anxiety, hypertension. On exam patient is confused. Patient has old bruising to the right forehead. Patient appears thin. Patient not oriented. Patient smells of urine. Sepsis protocol has been initiated lactic negative awaiting labs and exam.. Disposition Summary: 03/10/23 20:35 Hospitalization Ordered Hospitalization Status: Inpatient Admission cp Provider: Sinai Brody cp Location: Telemetry/MedSurg (Inpatient) cp Condition: Fair cp Problem: new cp Symptoms: have improved cp Bed/Room Type: Standard cp Room Assignment: 201(03/10/23 21:22) eb1 Diagnosis - Altered mental status, unspecified cp - UTI/ Urinary tract infection, site not specified cp Forms: - Medication Reconciliation Form cp - SBAR form cp - Leadership Thank You Letter cp Signatures: Dispatcher [employer] Ana Luisa Portillo MD MD cp3 Vanna Hernandez RN RN iw Page, Corey, PA PA cp Lena Mosqueda Emily, RN RN eb1 Mary Carmen Corral RN RN jw7 Corrections: (The following items were deleted from the chart) 21:22 20:35 cp eb1
--- NOTE | 2023-03-10 20:44 | P.HP ---
Certification for Inpatient Patient admitted to: Inpatient With expected LOS: <2 Midnights Patient will require the following post-hospital care: [facility] Practitioner: I am a practitioner with admitting privileges, knowledge of patient current condition, hospital course, and medical plan of care. Services: Services provided to patient in accordance with Admission requirements found in Title 42 Section 412.3 of the Code of Federal Regulations Patient History Date of Service: 03/10/23 Reason for admission: confusion History of Present Illness: 82-year-old female with a past medical history of dementia, osteoarthritis, fibromyalgia, anxiety, presents to the emergency room from intermediate For altered mental status. HPI limited due to dementia, from medical records patient reported poor p.o. intake, worsening confusion, difficulty walking, tremors over the last couple months. Unsure of patient's baseline. Due to patient confusion. Plan for admit for acute cystitis, metabolic encephalopathy, failure to thrive. Laboratory evaluation WBCs normal, early left shift 86.4, normocytic anemia, hemoglobin 11.1, 34.7, CMP elevated BUN at 34, creatinine normal at 0.95, low albumin 2.4, urinalysis leukoesterase greater than 500, 3+ blood, nitrite negative, CT of the abdomen pelvis correlates with acute cystitis, CT of the head no acute intracranial findings. Allergies No Known Allergies Allergy (Verified 10/04/22 15:09) Home Medications: Loperamide [Imodium*] 2 mg PO PRN PRN 10/04/22 risperiDONE [Risperdal 0.25 MG TAB*] 0.25 mg PO BID 10/04/22 Cefdinir [Cefdinir*] 300 mg PO BID #14 cap 10/07/22 Metoprolol Tartrate [Lopressor] 50 mg PO BID #60 tab 10/07/22 - Past Medical/Surgical History -: Dementia -: Fibromyalgia -: Anxiety disorder -: Osteoarthritis -: CVA -: head bleed in 2019 from fall -: back surgery x2 -: bilateral foot surgery -: cataract - Social History Smoking Status: Never smoker Alcohol use: No CD- Drugs: No Caffeine use: No Review of Systems 10-point ROS is otherwise unremarkable Physical Examination - Physical Exam General: Alert, Confused HEENT: Atraumatic, Normocephalic, PERRLA Neck: Supple, 2+ carotid pulse no bruit, JVD not distended Respiratory: Clear to auscultation bilaterally, Normal air movement Cardiovascular: No edema, Normal pulses Capillary refill: <2 Seconds Gastrointestinal: Normal bowel sounds, Soft and benign Musculoskeletal: No clubbing, No swelling, Other (Moderate generalized weakness) Integumentary: Other (Old bruise on forehead) Neurological: Other (Garbled speech, confused), Dementia - Studies Laboratory Data (last 24 hrs) 03/10/23 03/10/23 03/10/23 17:38 17:38 17:38 WBC 9.20 Hgb 11.1 L Hct 34.7 L Plt Count 106 L PT 10.6 INR 0.96 APTT 40.9 H Sodium 139 Potassium 3.8 BUN 34 H Creatinine 0.95 Glucose 115 H Magnesium 2.0 Total Bilirubin 0.3 AST 28 ALT 40 Alkaline Phosphatase 103 Assessment and Plan - Plan Assessment plan Metabolic encephalopathy Acute cystitis Dementia Acute kidney injury unknown baseline Normocytic anemia Failure to thrive Protein calorie malnutrition DVT prophylaxis Assessment plan Metabolic encephalopathy Fall precautions, supportive care CT of the head negative WBCs normal, early left shift 86.4, urinalysis leukoesterase greater than 500, 3+ blood, nitrite Acute cystitis, IV fluids, IV antibiotics, as needed antiemetics, CT of the abdomen pelvis suggestive of acute cystitis, no obstruction Dementia, Supportive care Acute kidney injury unknown baseline CMP elevated BUN at 34, creatinine normal at 0.95, Trend kidney function, IV fluids Normocytic anemia normocytic anemia, hemoglobin 11.1, 34.7, Trend H&H Failure to thrive Supportive care, IV fluids, Protein calorie malnutrition ow albumin 2.4, DVT prophylaxis Lovenox Diet n.p.o. until more alert Full code Discharge Plan: Group Home Plan to discharge in: 48 Hours - Advance Directives Does patient have a Living Will: Yes Does patient have a Durable POA for Healthcare: No - Code Status/Comfort Care Code Status: Full Code Physician Review: Patient Assessed, Agree with Above Assessment and Plan Time Spent Managing Pts Care (In Minutes): 50
[2023-03-10] MEDS: NA CHLORIDE 0.9% 1,000 ML IV SCH (21:00)
[2023-03-11 06:08] LABS: Absolute Lymphocytes (CBC) 0.7 K/uL (0.7-4.9); Hematocrit 31.1 % (36.0-45.0); Platelets 80 thou/uL (152-406); RBC Red Blood Cell Count 3.53 M/uL (3.86-4.86)
[2023-03-11 06:23] LABS: Magnesium 1.9 mg/dL (1.6-2.4); Potassium 3.5 mEq/L (3.5-5.1)
[2023-03-11] MEDS ORDERED: KCL 20 MEQ/100 mL IVPB 20 MEQ/100 ML BAG IV SCH (08:00)
[2023-03-11 08:19] VITALS: BMI 16.9
[2023-03-11 08:19] LABS: Blood Morphology Comment NOT SEEN (NOT SEEN); Platelet Estimate DECR
[2023-03-11] MEDS: CEFTRIAXONE 1,000 MG in NA CHLORIDE 0.9% 50 ML IVPB SCH (08:19)
[2023-03-11] MEDS: NA CHLORIDE 0.9% 1,000 ML IV SCH (10:20)
--- NOTE | 2023-03-11 12:03 | P.PN ---
Subjective Date of Service: 03/11/23 Chief Complaint: confusion Patient is confused and cannot provide any subjective complaint. No reported fever. No agitation. Physical Examination - Vital Signs Temperature: 96.8 F Blood Pressure: 115/49 Pulse: 56 Respirations: 16 Pulse Ox (%): 91 - Studies Laboratory Data (last 24 hrs) 03/10/23 03/10/23 03/10/23 17:38 17:38 17:38 WBC 9.20 Hgb 11.1 L Hct 34.7 L Plt Count 106 L PT 10.6 INR 0.96 APTT 40.9 H Sodium 139 Potassium 3.8 BUN 34 H Creatinine 0.95 Glucose 115 H Magnesium 2.0 Total Bilirubin 0.3 AST 28 ALT 40 Alkaline Phosphatase 103 Assessment And Plan - Plan Physical Exam General: Somnolent, lethargic, cachectic. HEENT: Normocephalic, PERRLA Neck: Supple, JVD not distended Respiratory: Clear to auscultation bilaterally, Normal air movement Cardiovascular: No edema, Normal pulses Gastrointestinal: Normal bowel sounds, nondistended, nontender. Musculoskeletal: Contracted bilateral lower extremities. Integumentary: Old bruise on forehead. Neurological: Other (Garbled speech, confused), Dementia Diagnosis Metabolic encephalopathy Acute cystitis Dementia Acute kidney injury unknown baseline Normocytic anemia Failure to thrive Severe protein calorie malnutrition Plan: Metabolic encephalopathy/Acute cystitis CT of the abdomen pelvis suggestive of acute cystitis, no obstruction Likely secondary to UTI. Baseline advanced dementia. Fall precautions, supportive care CT of the head negative WBCs normal, early left shift 86.4, urinalysis leukoesterase greater than 500, 3+ blood, nitrite Continue IV fluids, IV antibiotics, as needed antiemetics, Dementia Supportive care Keep n.p.o. until mental status improve. Maintenance IV fluid. Acute kidney injury CMP elevated BUN at 34, creatinine normal at 0.95, IV fluids Monitor renal function. Normocytic anemia normocytic anemia, hemoglobin 11.1, 34.7, Trend H&H Failure to thrive/severe protein calorie monitor Supportive care, IV fluids. Nutritional consult DVT prophylaxis: Lovenox Full code Discharge Plan: [facility]
[2023-03-11] MEDS: D5.45NS W/KCL 20MEQ 20 MEQ/1,000 ML BAG IV SCH ×2 (13:19→23:39)
[2023-03-12 06:09] LABS: Absolute Lymphocytes (CBC) 0.6 K/uL (0.7-4.9); Hematocrit 30.7 % (36.0-45.0); Lymphocytes % 7.8 % (15.3-44.8); MCV 87.5 fL (80-100); MPV 7.8 fL (7.6-11.3); Platelets 85 thou/uL (152-406); RBC Red Blood Cell Count 3.51 M/uL (3.86-4.86)
[2023-03-12 06:19] LABS: Magnesium 1.8 mg/dL (1.6-2.4); Potassium 4.3 mEq/L (3.5-5.1)
[2023-03-12] MEDS: D5.45NS W/KCL 20MEQ 20 MEQ/1,000 ML BAG IV SCH ×2 (08:00→17:25)
[2023-03-12] MEDS ORDERED: MAGNESIUM SULFATE 1 gm IVPB 1 GM/100 ML BAG IV ONE (08:00)
[2023-03-12] MEDS: CEFTRIAXONE 1,000 MG in NA CHLORIDE 0.9% 50 ML IVPB SCH (08:01)
--- NOTE | 2023-03-12 12:50 | P.PN ---
Subjective Date of Service: 03/12/23 Chief Complaint: confusion Patient is more awake and interactive. Noted she is aphasic. No reported fever. No agitation. Physical Examination - Vital Signs Temperature: 97.1 F Blood Pressure: 142/74 Pulse: 59 Respirations: 16 Pulse Ox (%): 100 Assessment And Plan - Plan Physical Exam General: Awake,NAD. HEENT: Normocephalic, PERRLA Neck: Supple, JVD not distended Respiratory: Clear to auscultation bilaterally, Normal air movement Cardiovascular: No edema, Normal pulses Gastrointestinal: Normal bowel sounds, nondistended, nontender. Musculoskeletal: Contracted bilateral lower extremities. Integumentary: Old bruise on forehead. Neurological: Garbled speech, Dementia Diagnosis Metabolic encephalopathy Acute cystitis Dementia Acute kidney injury unknown baseline Normocytic anemia Failure to thrive Severe protein calorie malnutrition Plan: Metabolic encephalopathy/Acute cystitis CT of the abdomen pelvis suggestive of acute cystitis, no obstruction Likely secondary to UTI. Baseline advanced dementia. Fall precautions, supportive care CT of the head negative WBCs normal. Urine culture: GNR Continue IV fluids, IV antibiotics, as needed antiemetics, Dementia Supportive care Resume diet-dysphagia diet. Maintenance IV fluid. Acute kidney injury CMP elevated BUN at 34, creatinine normal at 0.95, IV fluids Monitor renal function. Normocytic anemia normocytic anemia, hemoglobin 11.1, 34.7, Failure to thrive/severe protein calorie monitor Supportive care, IV fluids. Nutritional consult DVT prophylaxis: Lovenox Full code Discharge Plan: [facility]
--- NOTE | 2023-03-12 15:31 | EKG ---
Test Date: 2023-03-10 Test Time: 17:11:18 Computer Assistant: RUFUS MEASUREMENT RESULTS: Intervals: Rate: 117 CA: 172 QRSD: 108 QT: 306 QTc: 426 [place]: P: 9 CA: 172 QRS: -24 T: 6 INTERPRETIVE STATEMENTS: Sinus rhythm with artifact Electronically Signed On 03-12-23 15:29:55 CDT by Singh Heaton
[2023-03-12 21:12] VITALS: O2SAT 93
[2023-03-13] MEDS: D5.45NS W/KCL 20MEQ 20 MEQ/1,000 ML BAG IV SCH ×2 (02:51→14:14)
[2023-03-13 08:40] LABS: Absolute Lymphocytes (CBC) 0.7 K/uL (0.7-4.9); Hematocrit 32.4 % (36.0-45.0); Lymphocytes % 11.9 % (15.3-44.8); MCV 88.2 fL (80-100); MPV 7.3 fL (7.6-11.3); Platelets 81 thou/uL (152-406); RBC Red Blood Cell Count 3.67 M/uL (3.86-4.86)
[2023-03-13 08:57] LABS: Magnesium 1.9 mg/dL (1.6-2.4); Potassium 4.5 mEq/L (3.5-5.1)
[2023-03-13] MEDS ORDERED: Meropenem 1,000 MG in NA CHLORIDE 0.9% 100 ML IV SCH (09:00)
[2023-03-13 09:45] LABS: Anisocytosis 1+; Blood Morphology Comment NOTED (NOT SEEN); Platelet Estimate DECR; White Blood Cell Scan OK (OK)
--- NOTE | 2023-03-13 09:49 | P.CNS ---
Date of Consult: 03/13/23 Reason for Consult: Bacteremia, ESBL Chief Complaint: confusion History of Present Illness: Patient is an 82 yo female with a past medical history of dementia, osteoarthritis, fibromyalgia, prior CVA who presented to the ED from longterm for altered mental status. Patient was found to have bacteremia and acute cystitis with E.coli ESBL. ID was consulted. Allergies No Known Allergies Allergy (Verified 10/04/22 15:09) Home medications list reviewed: Yes Home Medications: Loperamide [Imodium*] 2 mg PO PRN PRN 10/04/22 risperiDONE [Risperdal 0.25 MG TAB*] 0.25 mg PO BID 10/04/22 Cefdinir [Cefdinir*] 300 mg PO BID #14 cap 10/07/22 Metoprolol Tartrate [Lopressor] 50 mg PO BID #60 tab 10/07/22 - Past Medical/Surgical History -: Dementia -: Fibromyalgia -: Anxiety disorder -: Osteoarthritis -: CVA -: head bleed in 2019 from fall -: back surgery x2 -: bilateral foot surgery -: cataract - Social History Smoking Status: Unknown if ever smoked Alcohol use: No CD- Drugs: No Caffeine use: No Review of Systems is unable to be obtained Physical Examination Temp Pulse Resp BP Pulse Ox 97.0 F 62 16 156/74 H 93 03/13/23 08:00 03/13/23 08:00 03/13/23 08:00 03/13/23 08:00 03/13/23 08:00 General: Cachectic, Demented, Other (patient is awake, nonverbal at this time. not following commands. ) HEENT: Atraumatic, Normocephalic Neck: JVD not distended Respiratory: Normal air movement, Diminished Cardiovascular: No edema, Regular rate/rhythm Gastrointestinal: Normal bowel sounds Musculoskeletal: No clubbing, No swelling Integumentary: Pressure ulcer (stage 1 buttocks/sacrum) Urinary: Other (PureWick) Laboratory Data - Reviewed Microbiology Data - Reviewed Imagings Data: - Reviewed Conclusions/Impression: Problem List Acute Cystitis Bacteremia, E.coli ESBL Dementia Hx Fibromyalgia Hx CVA Severe Protein Calorie Malnourishment Bacteremia secondary to Acute Cystitis, Escherichia coli ESBL - Urine culture 03/10: 3+ gram negative rods - Blood cultures 03/10: E.coli ESBL in 4 of 4 bottles - CT abdomen pelvis 03/10: "Severe cystitis suspected. No abscess is visualized." - Currently on Meropenem 03/13 - No leukocytosis. Afebrile. Recommendations - ESBL Bacteremia: Continue Meropenem or Invanz for 14 days (started 03/13) - Apply barrier cream to buttocks/sacrum - Pressure offloading measures. turn patient Q2H - Nutritional supplementation - Aspiration precautions Case discussed with Glenn Garcia
--- NOTE | 2023-03-13 12:28 | P.PN ---
Subjective Date of Service: 03/13/23 Chief Complaint: confusion No changes from yesterday. No reported fever or agitation Physical Examination - Vital Signs Temperature: 97.0 F Blood Pressure: 156/74 Pulse: 62 Respirations: 16 Pulse Ox (%): 93 - Studies Microbiology Data (last 24 hrs): 03/10/23 17:38 Blood - Blood Aerobic Blood Culture - Final Escherichia Coli Esbl 03/10/23 17:38 Blood - Blood Blood Culture Gram Stain - Final 03/10/23 17:38 Blood - Blood Anaerobic Blood Culture - Final Escherichia Coli Esbl 03/10/23 17:38 Blood - Blood Gram Stain - Final 03/10/23 18:00 Blood - Blood Aerobic Blood Culture - Final Escherichia Coli Esbl 03/10/23 18:00 Blood - Blood Blood Culture Gram Stain - Final 03/10/23 18:00 Blood - Blood Anaerobic Blood Culture - Final Escherichia Coli Esbl 03/10/23 18:00 Blood - Blood Gram Stain - Final Assessment And Plan - Plan Physical Exam General: Awake,NAD. HEENT: Normocephalic, PERRLA Neck: Supple, JVD not distended Respiratory: Clear to auscultation bilaterally, Normal air movement Cardiovascular: No edema, Normal pulses Gastrointestinal: Normal bowel sounds, nondistended, nontender. Musculoskeletal: Contracted bilateral lower extremities. Integumentary: Old bruise on forehead. Neurological: Garbled speech, Dementia Diagnosis Metabolic encephalopathy Acute cystitis Dementia Acute kidney injury unknown baseline Normocytic anemia Failure to thrive Severe protein calorie malnutrition Plan: Metabolic encephalopathy/Acute cystitis/ESBL bacteremia CT of the abdomen pelvis suggestive of acute cystitis, no obstruction Encephalopathy likely secondary to UTI and sepsis. Urine culture and 4 blood culture bottles all grew ESBL E. coli resistant to cephalosporins. Antibiotics changed to IV meropenem Baseline advanced dementia. Fall precautions, supportive care CT of the head negative WBCs normal. Continue IV fluid, resume diet. Repeat blood culture Infectious disease consulted. Dementia Supportive care Resume diet-dysphagia diet. Maintenance IV fluid. Acute kidney injury CMP elevated BUN at 34, creatinine normal at 0.95, IV fluids Monitor renal function. Normocytic anemia normocytic anemia, hemoglobin 11.1, 34.7, Failure to thrive/severe protein calorie monitor Supportive care, IV fluids. Nutritional consult DVT prophylaxis: Lovenox Discharge Plan: Jail
--- NOTE | 2023-03-13 13:14 | EKG ---
Test Date: 2023-03-10 Test Time: 17:32:09 Pantograph Transferrer: RUFUS MEASUREMENT RESULTS: Intervals: Rate: 50 AL: 192 QRSD: 98 QT: 494 QTc: 450 [place]: P: 74 AL: 192 QRS: 80 T: 88 INTERPRETIVE STATEMENTS: Sinus bradycardia Nonspecific ST and T wave abnormality Abnormal ECG Compared to ECG 03/10/2023 17:11:18 ST (T wave) deviation now present Sinus rhythm no longer present Electronically Signed On 03-13-23 13:11:30 CDT by Singh Heaton
[2023-03-13] MEDS: Meropenem 1,000 MG in NA CHLORIDE 0.9% 100 ML IV SCH (17:15)
[2023-03-13] MEDS: ENSURE ENLIVE 237 ML CAN PO SCH (23:12)
[2023-03-14] MEDS: Meropenem 1,000 MG in NA CHLORIDE 0.9% 100 ML IV SCH ×3 (01:03→18:39)
[2023-03-14] MEDS: D5.45NS W/KCL 20MEQ 20 MEQ/1,000 ML BAG IV SCH ×3 (01:03→15:00)
[2023-03-14 04:56] LABS: Absolute Lymphocytes (CBC) 0.8 K/uL (0.7-4.9); Lymphocytes % 13.9 % (15.3-44.8); MCV 86.9 fL (80-100); MPV 7.6 fL (7.6-11.3); Platelets 97 thou/uL (152-406); RBC Red Blood Cell Count 3.68 M/uL (3.86-4.86)
[2023-03-14 05:11] LABS: Potassium 4.4 mEq/L (3.5-5.1)
--- NOTE | 2023-03-14 06:58 | P.PN ---
Date of Service: 03/14/23 Subjective: demented, minimal meaningful responses states "no" when asked if hungry and if in pain no acute events overnight afebrile ROS: 10 point ROS as noted above, otherwise negative Physical Exam: GEN: demented, NAD, cachectic HEENT: Normal conjunctiva, sclera anicteric, dry mouth /lips CV: Regular rate and rhythm, no edema Pulm: Nonlabored respirations on room air ABD: Soft, nontender, nondistended Neuro: demented, not answering all questions / participating with exam vitals reviewed Problem List: Metabolic encephalopathy secondary to Acute cystitis, ESBL bacteremia Dementia ARCHIE Normocytic anemia Severe protein calorie malnutrition Metabolic encephalopathy secondary to Acute cystitis, ESBL bacteremia CT abdomen (03/10): suggestive of acute cystitis, no obstruction Encephalopathy likely secondary to UTI and sepsis. On background of advanced dementia at baseline Urine cx (03/10): E. Coli ESBL, Proteus Mirabilis ESBL Blood cx (03/10): E. Coli ESBL repeat blood cx (03/13): NGTD ID consulted Continue IV meropenem vs invanz (03/13-03/27) x2 weeks afebrile, no leukocytosis PICC line ordered 03/14 SS/CM consulted for IV antibiotics patient is resident at [facility] CT head (03/10): negative for any acute findings Fall precautions. Resume diet-dysphagia diet. ARCHIE improved, decrease IVF Monitor renal function. Normocytic anemia monitor H&H. transfuse if hgb < 7 Severe protein calorie malnutrition Supportive care, IV fluids. Nutritional consult VTE: SCD Code: DNR Dispo: Longterm - [place] Pending PICC line, further improvement
[2023-03-14] MEDS: Mupirocin NASAL 2 APPL/1 GM TUBE NAS SCH ×2 (08:11→21:00)
[2023-03-14] MEDS: ENSURE ENLIVE 237 ML CAN PO SCH ×3 (08:12→21:00)
--- NOTE | 2023-03-14 09:48 | P.PN ---
Date of Service: 03/14/23 Chief Complaint: confusion Subjective: Patient seen and examined at bedside. She is awake. Does not follow commands. Unable to obtain ROS. In no apparent distress. Physical Examination Temp Pulse Resp BP Pulse Ox 97.4 F 83 17 154/98 H 97 03/14/23 08:00 03/14/23 08:00 03/14/23 08:00 03/14/23 08:00 03/14/23 08:00 General: Cachectic, Demented. does not follow commands. awake. moving bilateral upper extremities. HEENT: Atraumatic, Normocephalic Neck: JVD not distended Respiratory: Normal air movement, Diminished at bases. Cardiovascular: No edema, Regular rate/rhythm Gastrointestinal: Normal bowel sounds Musculoskeletal: No clubbing, No swelling Integumentary: Pressure ulcer stage 1 buttocks/sacrum Urinary: PureWick Laboratory Data - Reviewed Microbiology Data - Reviewed Imagings Data: - Reviewed Medications list: reviewed Assessment and Plan Problem List Acute Cystitis Bacteremia, ESBL Dementia Hx Fibromyalgia Hx CVA Severe Protein Calorie Malnourishment ESBL Bacteremia secondary to Acute Cystitis - Urine culture 03/10: 3+ Escherichia coli ESBL and Proteus mirabilis ESBL - Blood cultures 03/10: E.coli ESBL in 4 of 4 bottles - CT abdomen pelvis 03/10: "Severe cystitis suspected. No abscess is visualized." - Currently on Meropenem 03/13 - No leukocytosis. Afebrile. Recommendations - ESBL Bacteremia: Continue IV Meropenem or Invanz for 14 days (03/13 to 03/27). Recommend PICC line placement - Apply barrier cream to buttocks/sacrum - Pressure offloading measures. turn patient Q2H - Nutritional supplementation - Aspiration precautions Case discussed with Glenn Garcia
[2023-03-15] MEDS: Meropenem 1,000 MG in NA CHLORIDE 0.9% 100 ML IV SCH ×3 (00:53→17:03)
--- NOTE | 2023-03-15 06:52 | P.PN ---
Date of Service: 03/15/23 Subjective: more talkative today states "no" when asked if in any pain Poor appetite no acute events overnight afebrile ROS: 10 point ROS as noted above, otherwise negative Physical Exam: GEN: demented, NAD, cachectic HEENT: Normal conjunctiva, sclera anicteric CV: Regular rate and rhythm, no edema Pulm: Nonlabored respirations on room air ABD: Soft, nontender, nondistended Neuro: demented, answers some questions appropriate vitals reviewed Problem List: Metabolic encephalopathy secondary to Acute cystitis, ESBL bacteremia Dementia ARCHIE Normocytic anemia Severe protein calorie malnutrition Metabolic encephalopathy secondary to Acute cystitis, ESBL bacteremia CT abdomen (03/10): suggestive of acute cystitis, no obstruction Encephalopathy likely secondary to UTI and sepsis. On background of advanced dementia at baseline Urine cx (03/10): E. Coli ESBL, Proteus Mirabilis ESBL Blood cx (03/10): E. Coli ESBL repeat blood cx (03/13): NGTD ID consulted Continue IV meropenem vs invanz (03/13-03/27) x2 weeks afebrile, no leukocytosis PICC line ordered 03/14 SS/CM consulted for IV antibiotics patient is resident at [facility] CT head (03/10): negative for any acute findings Fall precautions. Resume diet-dysphagia diet. Speech consult ARCHIE improved, decrease IVF Monitor renal function. Normocytic anemia monitor H&H. transfuse if hgb < 7 Severe protein calorie malnutrition Supportive care, IV fluids. Nutritional consult VTE: SCD Code: DNR Dispo: Longterm - [place] Pending PICC line, further improvement
[2023-03-15] MEDS: Mupirocin NASAL 2 APPL/1 GM TUBE NAS SCH ×2 (08:22→20:17)
[2023-03-15] MEDS: ENSURE ENLIVE 237 ML CAN PO SCH ×3 (08:23→20:17)
--- NOTE | 2023-03-15 09:17 | P.PN ---
Date of Service: 03/15/23 Chief Complaint: confusion Subjective: Patient seen and examined at bedside. Improving. No acute events reported overnight. In no apparent distress. Physical Examination Temp Pulse Resp BP Pulse Ox 97.5 F 76 18 158/83 H 97 03/15/23 04:00 03/15/23 04:00 03/15/23 04:00 03/15/23 04:00 03/15/23 04:00 General: Cachectic, Demented. does not follow commands. HEENT: Atraumatic, Normocephalic Neck: JVD not distended Respiratory: Normal air movement, Diminished at bases. Cardiovascular: No edema, Regular rate/rhythm Gastrointestinal: Normal bowel sounds Musculoskeletal: No clubbing, No swelling Integumentary: Pressure ulcer stage 1 buttocks/sacrum Urinary: PureWick Laboratory Data - Reviewed Microbiology Data - Reviewed Imagings Data: - Reviewed Medications list: reviewed Assessment and Plan Problem List Acute Cystitis Bacteremia, ESBL Dementia Hx Fibromyalgia Hx CVA Severe PCM ESBL Bacteremia secondary to Acute Cystitis - Urine culture 03/10: Escherichia coli ESBL and Proteus mirabilis ESBL - Blood cultures 03/10: E.coli ESBL in 4 of 4 bottles - CT abdomen pelvis 03/10: "Severe cystitis suspected. No abscess is visualized." - Currently on Meropenem 03/13 - No leukocytosis. Afebrile. Recommendations - ESBL Bacteremia: Continue IV Meropenem or Invanz for 14 days (03/13 to 03/27). Recommend PICC line placement - Apply barrier cream to buttocks/sacrum - Nutritional supplementation - Aspiration precautions Case discussed with Glenn Garcia
[2023-03-16] MEDS: Meropenem 1,000 MG in NA CHLORIDE 0.9% 100 ML IV SCH ×3 (00:59→17:06)
[2023-03-16] MEDS: D5.45NS W/KCL 20MEQ 20 MEQ/1,000 ML BAG IV SCH (01:03)
[2023-03-16 03:29] LABS: Magnesium 1.8 mg/dL (1.6-2.4); Potassium 4.2 mEq/L (3.5-5.1)
[2023-03-16] MEDS ORDERED: MAGNESIUM SULFATE 1 gm IVPB 1 GM/100 ML BAG IV ONE ×2 (03:41→04:30)
--- NOTE | 2023-03-16 06:43 | P.PN ---
Date of Service: 03/16/23 Subjective: Doing okay no acute events overnight afebrile ROS: 10 point ROS as noted above, otherwise negative Physical Exam: GEN: demented, NAD, cachectic HEENT: Normal conjunctiva, sclera anicteric CV: Regular rate and rhythm, no edema Pulm: Nonlabored respirations on room air ABD: Soft, nontender, nondistended Neuro: demented, answers some questions appropriate vitals reviewed Problem List: Metabolic encephalopathy secondary to Acute cystitis, ESBL bacteremia Dementia ARCHIE Normocytic anemia Severe protein calorie malnutrition Metabolic encephalopathy secondary to Acute cystitis, ESBL bacteremia CT abdomen (03/10): suggestive of acute cystitis, no obstruction Encephalopathy likely secondary to UTI and sepsis. On background of advanced dementia at baseline Urine cx (03/10): E. Coli ESBL, Proteus Mirabilis ESBL Blood cx (03/10): E. Coli ESBL repeat blood cx (03/13): NGTD ID consulted Continue IV meropenem vs invanz (03/13-03/27) x2 weeks afebrile, no leukocytosis PICC line ordered 03/14 SS/CM consulted for IV antibiotics patient is resident at [facility] CT head (03/10): negative for any acute findings Fall precautions. Resume diet-dysphagia diet. Speech consult ARCHIE improved, decrease IVF Monitor renal function. Normocytic anemia monitor H&H. transfuse if hgb < 7 Severe protein calorie malnutrition Supportive care, IV fluids. Nutritional consult VTE: SCD Code: DNR Dispo: [facility] Pending PICC line, further improvement
--- NOTE | 2023-03-16 09:08 | P.PN ---
Date of Service: 03/16/23 Chief Complaint: confusion Subjective: Patient appears to be more alert today. in no apparent distress. No acute events reported overnight. Patient denies any pain. Physical Examination Temp Pulse Resp BP Pulse Ox 96.1 F L 69 16 144/75 H 98 03/16/23 08:00 03/16/23 08:00 03/16/23 08:00 03/16/23 08:00 03/16/23 08:00 General: Cachectic, Demented. A&Ox1. Responding yes/no to simple questions. Some incoherent words. HEENT: Atraumatic, Normocephalic Neck: JVD not distended Respiratory: Normal air movement, Diminished at bases. Cardiovascular: No edema, Regular rate/rhythm Gastrointestinal: Normal bowel sounds Musculoskeletal: No clubbing, No swelling Integumentary: Pressure ulcer stage 1 buttocks/sacrum Urinary: Pure[employer]ick Laboratory Data - Reviewed Microbiology Data - Reviewed Imagings Data: - Reviewed Medications list: reviewed Assessment and Plan Problem List Acute Cystitis Bacteremia, ESBL Dementia Hx Fibromyalgia Hx CVA Severe PCM ESBL Bacteremia secondary to Acute Cystitis - Urine culture 03/10: Escherichia coli ESBL and Proteus mirabilis ESBL - Blood cultures 03/10: E.coli ESBL in 4 of 4 bottles - CT abdomen pelvis 03/10: "Severe cystitis suspected. No abscess is visualized." - Currently on Meropenem 03/13 - No leukocytosis. Afebrile. Recommendations - ESBL Bacteremia: Continue IV Meropenem or Invanz for 14 days (03/13 to 03/27). - Apply barrier cream to buttocks/sacrum. Pressure offloading measures. - Nutritional supplementation - Aspiration precautions Case discussed with Dr. Bautista N.
[2023-03-16] MEDS: ENSURE ENLIVE 237 ML CAN PO SCH ×3 (09:37→21:03)
[2023-03-16] MEDS: Mupirocin NASAL 2 APPL/1 GM TUBE NAS SCH ×2 (09:37→21:00)
[2023-03-17 03:11] LABS: Magnesium 2.2 mg/dL (1.6-2.4); Potassium 4.1 mEq/L (3.5-5.1)
[2023-03-17] MEDS: Meropenem 1,000 MG in NA CHLORIDE 0.9% 100 ML IV SCH ×2 (03:28→08:35)
--- NOTE | 2023-03-17 07:59 | P.DS ---
Admission Date: 03/10/23 Discharge Date: 03/17/23 Disposition: TRANSFER TO RESIDENTIAL Discharge Condition: GOOD Reason for Admission: confusion Consultations: Infectious Disease - Dr. Bautista Brief History of Present Illness: 82yo F, PMH: dementia, osteoarthritis, fibromyalgia, anxiety Patient presents to the emergency room from care home For altered mental status. HPI limited due to dementia, from medical records patient reported poor p.o. intake, worsening confusion, difficulty walking, tremors over the last couple months. Unsure of patient's baseline. Due to patient confusion. Plan for admit for acute cystitis, metabolic encephalopathy, failure to thrive. Laboratory evaluation WBCs normal, early left shift 86.4, normocytic anemia, hemoglobin 11.1, 34.7, CMP elevated BUN at 34, creatinine normal at 0.95, low albumin 2.4, urinalysis leukoesterase greater than 500, 3+ blood, nitrite negative, CT of the abdomen pelvis correlates with acute cystitis, CT of the head no acute intracranial findings. Hospital Course: Problem List: Metabolic encephalopathy secondary to Acute cystitis, ESBL bacteremia Dementia ARCHIE, prerenal - dehydration Normocytic anemia Severe protein calorie malnutrition Patient presented from care home with acute encephalopathy, found to have a UTI. Urine and blood cultures (03/10) grew ESBL E. coli, with urine additionally growing ESBL Proteus.Repeat blood cultures on 03/13 were negative. Infectious disease was consulted, and recommended 2-week total course of IV antibiotics starting from negative culture on 03/13. Antibiotics to be completed on 03/27. Patient was treated with meropenem and transitioned to ertapenem on discharge. She had improvement of her mentation. She remained afebrile without leukocytosis, and appetite improved. A PICC line was placed and patient was deemed stable for transfer back to the care home to continue antibiotics. Continue other chronic medications as previously prescribed. Given her confusion and baseline dementia, speech therapy was consulted. Recommended mechanical soft diet and thin liquids. No overt signs of aspiration, patient noted to have prolonged mastication time, and given her dementia and inability to appropriately voice/describe any concerns forward dysphagia. Continue to monitor and work with/follow-up with speech therapy Physical Exam: GEN: demented, NAD, cachectic HEENT: Normal conjunctiva, sclera anicteric CV: Regular rate and rhythm, no edema Pulm: Nonlabored respirations on room air ABD: Soft, nontender, nondistended Neuro: demented, answers some questions appropriate Vital Signs/Physical Exam: Temp Pulse Resp BP Pulse Ox 97.0 F 89 16 119/64 100 03/16/23 20:00 03/16/23 20:00 03/16/23 20:00 03/16/23 20:00 03/16/23 20:00 Laboratory Data at Discharge: WBC 6.00 thou/uL (4.3-10.9) 03/14/23 04:05 Hgb 10.4 g/dL (12.0-15.0) L 03/14/23 04:05 Hct 32.0 % (36.0-45.0) L 03/14/23 04:05 Plt Count 97 thou/uL (152-406) L 03/14/23 04:05 PT 10.6 SECONDS (9.5-12.5) 03/10/23 17:38 INR 0.96 03/10/23 17:38 APTT 40.9 SECONDS (24.3-36.9) H 03/10/23 17:38 Sodium 137 mEq/L (136-145) 03/17/23 02:04 Potassium 4.1 mEq/L (3.5-5.1) 03/17/23 02:04 BUN 13 mg/dL (7-18) 03/17/23 02:04 Creatinine 0.61 mg/dL (0.55-1.02) 03/17/23 02:04 Glucose 79 mg/dL (74-106) 03/17/23 02:04 Phosphorus 3.8 mg/dL (2.5-4.9) 03/12/23 03:17 Magnesium 2.2 mg/dL (1.6-2.4) 03/17/23 02:04 Total Bilirubin 0.3 mg/dL (0.2-1.0) 03/10/23 17:38 AST 28 U/L (15-37) 03/10/23 17:38 ALT 40 U/L (13-56) 03/10/23 17:38 Alkaline Phosphatase 103 U/L (45-117) 03/10/23 17:38 Home Medications: Loperamide [Imodium*] 2 mg PO PRN PRN 10/04/22 risperiDONE [Risperdal 0.25 MG TAB*] 0.25 mg PO BID 10/04/22 Cefdinir [Cefdinir*] 300 mg PO BID #14 cap 10/07/22 Metoprolol Tartrate [Lopressor] 50 mg PO BID #60 tab 10/07/22 Physician Discharge Instructions: Patient presented from care home with acute encephalopathy, found to have a UTI. Urine and blood cultures (03/10) grew ESBL E. coli, with urine additionally growing ESBL Proteus.Repeat blood cultures on 03/13 were negative. Infectious disease was consulted, and recommended 2-week total course of IV antibiotics starting from negative culture on 03/13. Antibiotics to be completed on 03/27. Patient was treated with meropenem and transitioned to ertapenem on discharge. She had improvement of her mentation. She remained afebrile without leukocytosis, and appetite improved. A PICC line was placed and patient was deemed stable for transfer back to the care home to continue antibiotics. Continue other chronic medications as previously prescribed. Given her confusion and baseline dementia, speech therapy was consulted. Recommended mechanical soft diet and thin liquids. No overt signs of aspiration, patient noted to have prolonged mastication time, and given her dementia and inability to appropriately voice/describe any concerns forward dysphagia. Continue to monitor and work with/follow-up with speech therapy Time spent managing pt's care (in minutes): 45
--- NOTE | 2023-03-17 08:20 | P.PN ---
Date of Service: 03/17/23 Chief Complaint: confusion Subjective: Continues to improve. Patient in bed, in no apparent distress, breathing comfortably on room air. Current plan for discharge back to intermediate with PICC line to complete remainder of IV antibiotic therapy. Physical Examination Temp Pulse Resp BP Pulse Ox 97.0 F 89 16 119/64 100 03/16/23 20:00 03/16/23 20:00 03/16/23 20:00 03/16/23 20:00 03/16/23 20:00 General: Cachectic, Demented. A&Ox1. Incoherent speech, however able to respond yes/no to simple questions. HEENT: Atraumatic, Normocephalic Neck: JVD not distended Respiratory: Normal air movement. Slightly diminished. On room air. Cardiovascular: No edema, Regular rate/rhythm Gastrointestinal: Normal bowel sounds. Nontender. Nondistended. Musculoskeletal: No clubbing, No swelling Integumentary: Pressure ulcer stage 1 buttocks/sacrum Urinary: PureWick Studies Laboratory Data - Reviewed Microbiology Data 03/10/23 18:44 Clean Catch Urine Adams Count - Final >100,000 CFU/ML. 03/10/23 18:44 Clean Catch Urine - Final Escherichia Coli Esbl Proteus Mirabilis Esbl 03/10/23 17:38 Blood - Blood Aerobic Blood Culture - Final Escherichia Coli Esbl 03/10/23 17:38 Blood - Blood Blood Culture Gram Stain - Final 03/10/23 17:38 Blood - Blood Anaerobic Blood Culture - Final Escherichia Coli Esbl 03/10/23 17:38 Blood - Blood Gram Stain - Final 03/10/23 18:00 Blood - Blood Aerobic Blood Culture - Final Escherichia Coli Esbl 03/10/23 18:00 Blood - Blood Blood Culture Gram Stain - Final 03/10/23 18:00 Blood - Blood Anaerobic Blood Culture - Final Escherichia Coli Esbl 03/10/23 18:00 Blood - Blood Gram Stain - Final Imagings Data: - Reviewed Medications list: Acetaminophen (Acetaminophen 500 Mg Tab) 500 mg PO Q4HP PRN PRN Reason: Pain scale 2-4 (Mild) Meropenem 1,000 mg/ Sodium (Chloride) 100 mls @ 200 mls/hr IV Q8HR EMILY Last Admin: 03/17/23 03:28 Dose: 100 mls Mupirocin (Mupirocin Nasal 2 Appl/1 Gm Tube) 1 appl KT BID [facility] Stop: 03/18/23 21:01 Last Admin: 03/16/23 21:00 Dose: Not Given Nutritional Formula (Ensure Enlive 237 Ml Can) 237 ml PO TID [facility] Last Admin: 03/16/23 21:03 Dose: 237 ml Ondansetron HCl (Ondansetron 4 Mg/2 Ml Vial) 4 mg IV Q6HP PRN PRN Reason: NAUSEA / VOMITING Sodium Chloride (Flush Normal Saline 10 Ml) 10 ml IV BID [facility] Last Admin: 03/16/23 21:03 Dose: 10 ml Assessment and Plan Problem List Acute Cystitis Bacteremia, ESBL Dementia Hx Fibromyalgia Hx CVA Severe PCM ESBL Bacteremia secondary to Acute Cystitis - Urine culture 03/10: Escherichia coli ESBL and Proteus mirabilis ESBL - Blood cultures 03/10: E.coli ESBL in 4 of 4 bottles - CT abdomen pelvis 03/10: "Severe cystitis suspected. No abscess is visualized." - On Meropenem (started 03/13) - No leukocytosis. Afebrile. Recommendations - ESBL Bacteremia: Continue IV Meropenem/Invanz for 14 days (03/13 to 03/27). PICC line placed 03/17 - Apply barrier cream to buttocks/sacrum. Pressure offloading measures. - Nutritional supplementation - Aspiration precautions Case discussed with Glenn Garcia
[2023-03-17 08:28] VITALS: BP 112/80; TEMP 97.1
[2023-03-17] MEDS: Mupirocin NASAL 2 APPL/1 GM TUBE NAS SCH (08:33)
[2023-03-17] MEDS: ENSURE ENLIVE 237 ML CAN PO SCH (08:35)
[2023-03-17 09:06] LABS: SARS-CoV-2 Antigen Rapid Res Negative (Negative)
--- NOTE | 2023-03-17 14:44 | RAD REPORT ---
EXAM DESCRIPTION: RAD - Chest Single View - 03/17/2023 3:22 am CLINICAL HISTORY: PICC LINE TECHNIQUE: AP chest COMPARISON: None available for comparison FINDINGS: CHEST: Right-sided PICC line with the distal tip in the SVC. No pneumothorax. Cardiac silhouette is not enlarged. No airspace disease or pleural effusion. IMPRESSION: Right-sided PICC line with the distal tip in the SVC. No pneumothorax. Electronically signed by: Jose Antonio Rollins MD 03/17/2023 4:38 AM CDT Due to temporary technical issues with the PACS/Fluency reporting system, reports are being signed by the in house radiologists without review as a courtesy to insure prompt reporting. The interpreting radiologist is fully responsible for the content of the report.
== END 2023-03-17 11:30 | DRG 689 ==
LOC: ER 16:27 → ERHOLD 20:06 → 2ND 21:58
PROVIDERS: ADMIT Internal Medicine Sleep Medicine; ATTEND Hospitalist
PROC: 02HV33Z Insertion of Infusion Device into Superior Vena Cava, Percutaneous Approach (ICD-10-PCS; principal; 2023-03-17)
DX: N30.00 Acute cystitis without hematuria (principal); E43 Unspecified severe protein-calorie malnutrition; G93.41 Metabolic encephalopathy; N17.9 Acute kidney failure, unspecified; Z68.1 Body mass index [BMI] 19.9 or less, adult; R64 Cachexia; R47.01 Aphasia; Z16.12 Extended spectrum beta lactamase (ESBL) resistance; R78.81 Bacteremia; Z16.19 Resistance to other specified beta lactam antibiotics; M79.7 Fibromyalgia; D64.9 Anemia, unspecified; L89.151 Pressure ulcer of sacral region, stage 1; L89.301 Pressure ulcer of unspecified buttock, stage 1; M19.90 Unspecified osteoarthritis, unspecified site; G30.9 Alzheimer's disease, unspecified; F02.80 Dementia in other diseases classified elsewhere, unspecified severity, without behavioral disturbance, psychotic disturbance, mood disturbance, and anxiety; B96.4 Proteus (mirabilis) (morganii) as the cause of diseases classified elsewhere; B96.20 Unspecified Escherichia coli [E. coli] as the cause of diseases classified elsewhere; Z66 Do not resuscitate; Z86.73 Personal history of transient ischemic attack (TIA), and cerebral infarction without residual deficits; Z79.899 Other long term (current) drug therapy; Z20.822 Contact with and (suspected) exposure to COVID-19
CPT/HCPCS: 36415; 36569; 70450; 71045; 71260; 72125; 74177; 80048; 80053; 81001; 82947; 83605; 83735; 84100; 84484; 85025; 85610; 85730; 87040; 87077; 87086; 87088; 87186; 87205; 87811; 92523; 92526; 92610; 93005; 96361; 96374; 99284; J0696; J2185; J3475; J3480; J7030; Q9967